=== PATIENT | female | born 1935 | race Caucasian/White ===

== ENCOUNTER → 2016-12-05 | Outpatient (CLI) | payer MEDICARE, BC ==
[2016-03-29 15:00] VITALS: BP 129/58
[~2016-12-05] MED LIST: ACET650S19 PO; ACIT25CA PO; APRE30TA2 PO; AZIT250T6 PO; BISA10SU55 RC; CALC60CR2 TP; CELE200C PO; CLOB15CR2 TP; CLON0.5T3 PO; DILT120T PO; DULO60CA6 PO; FERR-26 PO; FOLI1TAB16 PO; FURO-69 PO; FURO40TA4 PO; GABA-585 PO; HYDR-2672 PO; HYDR-971 PO; HYDR200T5 PO; LEVO75TA PO; LUBI24CA5 PO; MAGN2400 PO; MULT1TAB52 PO; NYST1POW2 TOP; OMEG1CAP6 PO; PANT40TA5 PO; POTA10CA PO; PRED-220 PO; SPIR50TA2 PO; TRAZ100T12 PO; TRAZ50TA15 PO; TRIA115C TP
--- NOTE | 2016-12-05 13:08 | RAD ---
EXAM: Chest 2 views. HISTORY: Positive PPD. COMPARISON: 03/28/2016. FINDINGS: Frontal and lateral views of the chest are obtained. There are no confluent infiltrates. Hyperinflation is consistent with chronic obstructive pulmonary disease. Calcified mediastinal lymph nodes are likely secondary to old granulomatous disease. There is no pneumothorax or pleural effusion. The heart is not enlarged. There are atherosclerotic calcifications of the aorta. There are changes of reversal right total shoulder arthroplasty. Instrumented posterior fusion is noted along the upper lumbar spine, spanning of fracture deformity status post vertebroplasty. IMPRESSION: 1. Chronic obstructive pulmonary disease. No confluent infiltrates.
== END | disposition home or self-care (01) ==
LOC: RAD 11:05
PROVIDERS: ATTEND Preventive Medicine Occupational Medicine
DX: R76.12 Nonspecific reaction to cell mediated immunity measurement of gamma interferon antigen response without active tuberculosis (principal)
CPT/HCPCS: 71020

== ENCOUNTER 2017-08-19 15:23 | Emergency (ER) | payer MEDICARE, BC ==
[~2017-08-19] VITALS: Ht 160 cm; Wt 97.5 kg
[~2017-08-19 15:23] MED LIST changes: -HYDR-2672 PO; +HYDR-2766 PO; -LUBI24CA5 PO; +LUBI24CA7 PO; -POTA10CA PO; +POTASSIUM CHLO10 MEQ PO
[2017-08-19 16:46] LABS: BASO % 1 % (0-3); EOS % 2 % (0-3); HEMATOCRIT 25.5 % (36.0-47.0); HEMOGLOBIN 8.5 g/dL (12.0-15.5); LYMPH % 13 % (24-48); MEAN CORPUSCULAR HEMOGLOBIN 35 pg (25-35); MEAN CORPUSCULAR HGB CONC 33 g/dL (31-37); MEAN CORPUSCULAR VOLUME 105 fL (79-100); MONO % 10 % (0-9); NEUT % 75 % (31-73); PLATELET COUNT 110 x10^3/uL (140-400); RED BLOOD COUNT 2.42 x10^6/uL (3.50-5.40); WHITE BLOOD COUNT 7.7 x10^3/uL (4.0-11.0)
[2017-08-19 16:59] LABS: CALCIUM 9.5 mg/dL (8.5-10.1); GFR 23.9; POTASSIUM 5.4 mmol/L (3.5-5.1)
[2017-08-19 17:06] LABS: ALBUMIN/GLOBULIN RATIO 1.1 (1.0-1.7); TOTAL BILIRUBIN 0.3 mg/dL (0.2-1.0); TOTAL PROTEIN 7.5 g/dL (6.4-8.2)
--- NOTE | 2017-08-19 17:07 | RAD ---
AP PORTABLE CHEST Clinical Indication: soa, h/o "dormant" TB. Comparison: Two-view chest 12/05/2016. Findings: Atherosclerotic and ectatic aortic arch. Cardiac size normal. Lungs are clear. There is no pneumothorax. No pleural effusion is appreciated. There is no acute bone abnormality. Right shoulder arthroplasty. IMPRESSION: No acute cardiopulmonary process.
--- NOTE | 2017-08-19 17:56 | RAD ---
CT scan of the head without contrast 08/19/2017 Clinical History: Altered mental status. Left facial droop. Technique: Unenhanced, contiguous, 5 mm axial sections were obtained through the head. Findings: Comparison study is dated 01/17/2015. There is generalized parenchymal atrophy. Areas of decreased attenuation are seen within the periventricular and subcortical white matter of both cerebral hemispheres consistent with areas of small vessel ischemic disease. No acute parenchymal abnormality is seen. No extra-axial fluid collection is noted. No skull fracture is seen. Impression: . No acute intracranial abnormality is seen. Electronically signed by: Brooks King MD (08/19/2017 5:52 PM) [facility]
[2017-08-19 18:04] VITALS: BP 143/66
[2017-08-19] MEDS ORDERED: PRED20TA PO (18:11)
--- NOTE | 2017-08-19 18:11 | PHYS DOC ---
Past Medical History Past Medical History: Anemia, Arthritis, CHF, COPD, Renal Failure Additional Past Medical Histor: chronic pain in legs,feet,shoulders, kneess Past Surgical History: Other Additional Past Surgical Histo: R knee Alcohol Use: None Drug Use: None Adult General Chief Complaint Chief Complaint: SKIN PROBLEM HPI HPI Patient is a 82 year old female brought to the ED by family members with multiple complaints. The patient first complains of itchy rash on her scalp, upper back/left shoulder, and her low anterior chest. This has been going on for several weeks and is getting worse. It started as itchy scalp without lesions and now has "spread" and there is a rash. She's never had anything just like this before. She has been using a topical steroid intermittently without good result. She is also complaining of some "body aches" that seem like muscular aches and pains across her upper back and in her left shoulder and her left upper arm. This makes her left upper arm feel like she can't move it very well but it's more because of the soreness. Also at some point, they noticed some mild left facial droop. They believe she's had this for 2 or 3 weeks. She' s had no difficulty with speech, no weakness of upper or lower extremities. She is right-handed. She has no history of stroke. Patient denies fever or chills. PCP Dr. Roland Rashid She has also seen a arthritis specialist, does not know if she had a diagnosis. Review of Systems Review of Systems Constitutional: Denies fever or chills [] Eyes: Denies change in visual acuity, redness, or eye pain [] HENT: Denies nasal congestion or sore throat [] Respiratory: Denies cough or shortness of breath [] Cardiovascular: Denies chest pain GI: Denies abdominal pain, nausea, vomiting, bloody stools or diarrhea [] : Denies dysuria or hematuria [] Musculoskeletal: As in history of present illness Integument: As in history of present illness Neurologic: Facial droop as in history of present illness All other systems were reviewed and found to be within normal limits, except as documented in this note. Current Medications Current Medications Current Medications Medications (Trade) Dose Ordered Sig/Lj Start Time Stop Time Status Last Admin Dose Admin Diphenhydramine HCl (Benadryl) 25 mg 1X ONCE 08/19/17 18:30 11/18/17 18:31 DC 08/19/17 18:51 25 MG Allergies Allergies Allergies Coded Allergies Type Severity Reaction Last Updated Verified Cephalosporins Allergy Intermediate 03/24/16 No Penicillins Allergy Intermediate Rash 03/24/16 Yes levofloxacin Allergy Intermediate Rash 01/17/15 Yes Physical Exam Physical Exam Constitutional: Well developed, well nourished, no acute distress, non-toxic appearance. Alert, appropriate, mentating normally, vital signs stable. HENT: Normocephalic, atraumatic, bilateral external ears normal, nose normal. [ ] Eyes: conjunctiva normal, no discharge. [] Neck: Normal range of motion, no stridor. [] Cardiovascular:Heart rate regular rhythm, no murmur [] Lungs & Thorax: Bilateral breath sounds clear to auscultation [] Abdomen: Bowel sounds normal, soft, no tenderness, no masses, no pulsatile masses. [] Skin: Warm, dry. There is a pinkish red rash across the anterior chest that is mostly papular with 2-3 mm papules, there may be a few vesicles. There is no weeping. There are a few scattered lesions on the scalp that may be similar. There is a coalescent area of brighter erythema on the upper left posterior shoulder that is more excoriated. Back: No tenderness, no CVA tenderness. [] Extremities: There is some mild tenderness to palpation of the left shoulder musculature. There is no rash on the left arm. There is chronic appearing edema of both legs with skin darkening that appears chronic. Neurologic: Alert and oriented X 3, appropriate, may be a little forgetful but appears to be at her baseline. There is no speech disturbance. Cranial nerves testing reveals slight flattening of the left nasolabial fold. There is very mild asymmetry of the left side of her face. Eyebrows and forehead elevate evenly with symmetry. Tongue protrudes evenly. Muscles of mastication are symmetric. [employer] 5 over 5 and equal bilaterally. Because of the patient's left shoulder pain it is not possible to do pronator drift testing but her arm strength appears symmetric and 5 over 5 bilaterally. Leg strength 5 over 5 and equal bilaterally for lifting legs off the bed. Current Patient Data Vital Signs Vital Signs Date Time Temp Pulse Resp B/P (MAP) Pulse Ox O2 Delivery O2 Flow Rate FiO2 08/19/17 18:04 82 16 143/66 (91) 93 Room Air 08/19/17 17:34 92.0 08/19/17 15:50 98.2 98.2 Lab Values Laboratory Tests Test 08/19/17 16:35 White Blood Count 7.7 x10^3/uL (4.0-11.0) Red Blood Count 2.42 x10^6/uL (3.50-5.40) L Hemoglobin 8.5 g/dL (12.0-15.5) L Hematocrit 25.5 % (36.0-47.0) L Mean Corpuscular Volume 105 fL (79-100) H Mean Corpuscular Hemoglobin 35 pg (25-35) Mean Corpuscular Hemoglobin Concent 33 g/dL (31-37) Red Cell Distribution Width 14.0 % (11.5-14.5) Platelet Count 110 x10^3/uL (140-400) L Neutrophils (%) (Auto) 75 % (31-73) H Lymphocytes (%) (Auto) 13 % (24-48) L Monocytes (%) (Auto) 10 % (0-9) H Eosinophils (%) (Auto) 2 % (0-3) Basophils (%) (Auto) 1 % (0-3) Neutrophils # (Auto) 5.8 x10^3uL (1.8-7.7) Lymphocytes # (Auto) 1.0 x10^3/uL (1.0-4.8) Monocytes # (Auto) 0.7 x10^3/uL (0.0-1.1) Eosinophils # (Auto) 0.2 x10^3/uL (0.0-0.7) Basophils # (Auto) 0.0 x10^3/uL (0.0-0.2) Erythrocyte Sedimentation Rate 50 (0-25) H Sodium Level 137 mmol/L (136-145) Potassium Level 5.4 mmol/L (3.5-5.1) H Chloride Level 101 mmol/L (98-107) Carbon Dioxide Level 30 mmol/L (21-32) Anion Gap 6 (6-14) Blood Urea Nitrogen 34 mg/dL (7-20) H Creatinine 2.0 mg/dL (0.6-1.0) H Estimated GFR (Cockcroft-Gault) 23.9 BUN/Creatinine Ratio 17 (6-20) Glucose Level 114 mg/dL (70-99) H Calcium Level 9.5 mg/dL (8.5-10.1) Total Bilirubin 0.3 mg/dL (0.2-1.0) Aspartate Amino Transferase (AST) 22 U/L (15-37) Alanine Aminotransferase (ALT) 21 U/L (14-59) Alkaline Phosphatase 60 U/L (46-116) FT-Ork-M-Type Natriuretic Peptide 196 pg/mL (0-449) Total Protein 7.5 g/dL (6.4-8.2) Albumin 4.0 g/dL (3.4-5.0) Albumin/Globulin Ratio 1.1 (1.0-1.7) Laboratory Tests 08/19/17 16:35 Laboratory Tests 08/19/17 16:35 EKG EKG [] Radiology/Procedures Radiology/Procedures CT scan of the head read by the radiologist. No acute findings. Small vessel disease. [] Course & Med Decision Making Course & Med Decision Making Pertinent Labs and Imaging studies reviewed. (See chart for details) 82-year-old female brought to the ED by family members with multiple issues tonight. #1, she has an itchy rash that is nonspecific in appearance. Because of the location and distribution, I doubt contact dermatitis. #2, she has achiness of the left shoulder and left upper back especially but describes some diffuse muscle aches. For this I ordered a sedimentation rate which is elevated at 50, although the patient is a 82 so it could be normal for age. #3, she has a mild left facial droop that is not acute and may be 2-3 weeks old or more. She does not have other neurologic complaints or findings. Labs were obtained and reviewed by me. CBC reveals anemia which is chronic. Chemistries reveal chronic renal insufficiency which appears to be stable.\\CT scan of the head reveals nothing acute but positive for small vessel disease. I discussed the findings with the patient and her family. I believe the patient is stable for discharge. She may have had a very small CVA in the past 2-3 weeks causing her left facial droop which is very mild. We will start her on low -dose aspirin. For the rash and the complaints of muscle aches we will start the patient on a trial of prednisone. I would like to consider polymyalgia rheumatica and discussed this with the patient and her family and ask her to follow up with her primary care physician in the next week or so. Patient and her family were agreeable to this plan. The patient is stable for discharge. She does live in an assisted living situation and discharge instructions were sent for them as well. [] Jg Disclaimer Dragon Disclaimer This electronic medical record was generated, in whole or in part, using a voice recognition dictation system. Departure Departure Impression: Primary Impression: Elevated sed rate Additional Impressions: Myalgia Pruritic rash Disposition: 01 HOME, SELF-CARE Condition: STABLE Referrals: ROLAND RASHID Jr, MD (PCP) Additional Instructions: As we discussed, we will treat you with prednisone, which is a steroid. Fill the prescription and take twice a day as instructed. Make an appointment with your primary care doctor for recheck in 1-2 weeks and tell him how you are doing with the prednisone. We will give it for 2 weeks, a higher dose for the first week and then a lower dose the second week. Your primary care doctor can decide what he wants to do with your dosing if he does want to keep you on it. I don't know what is causing your itchy rash, but we often uses prednisone to treat itchy rashes so we will try it. I did a blood test today for a condition called polymyalgia rheumatica, abbreviated PMR. The blood test indicated that you might have that. It will be helpful to know whether or not prednisone helps your shoulder pain. If you feel a lot better while you're taking prednisone, you might have PMR. Discuss this with your primary care doctor. We noted a slight amount of weakness on the left side of your face. You may have had a slight stroke causing this. At this time, there is no way to confirm this with certainty and no specific treatment. Also, discuss this with your primary care doctor. We discussed that you are not on any type of blood thinning medication or aspirin. If you are not already currently taking aspirin , I would like you to start taking aspirin 81 mg (low dose) one per day. You may take it at morning or night, it doesn't matter. Summary: Begin taking prednisone 20 mg every 12 hours as directed tonight, after 1 week decrease to 20 mg once a day, discuss with your primary care doctor whether this helps you or not. Begin taking aspirin 81 mg daily if you are not already taking aspirin. Make a follow-up appointment with your primary care doctor in about one week. Scripts Prednisone (PREDNISONE) 20 Mg Tablet 20 MG PO BID for rash, possible PMR for 14 Days, #28 TAB 1 pill twice a day for 7 days Then 1 pill once a day for 7 days Prov: ROHITH PERRY MD 08/19/17 Problem Qualifiers ROHITH PERRY MD Aug 19, 2017 18:11
[2017-08-19] MEDS ORDERED: diphenhydrAMINE HCL 25 MG CAPSULE PO ONE (18:30)
== END 2017-08-19 19:04 | disposition home or self-care (01) ==
LOC: ER 15:23
DX: L29.9 Pruritus, unspecified (principal); R70.0 Elevated erythrocyte sedimentation rate; M79.1 Myalgia; R29.810 Facial weakness; M19.90 Unspecified osteoarthritis, unspecified site; I50.9 Heart failure, unspecified; J44.9 Chronic obstructive pulmonary disease, unspecified; N18.9 Chronic kidney disease, unspecified; G89.29 Other chronic pain; Z88.0 Allergy status to penicillin; Z88.1 Allergy status to other antibiotic agents
CPT/HCPCS: 36415; 70450; 71010; 80053; 83880; 85025; 85651; 99285; Q0163

== ENCOUNTER 2017-09-06 04:25 | Emergency (ER) | payer MEDICARE, BC ==
[~2017-09-06 04:25] MED LIST changes: +PRED20TA PO
--- NOTE | 2017-09-06 04:31 | PHYS DOC ---
Past Medical History Past Medical History: Anemia, Arthritis, CHF, COPD, Renal Failure Additional Past Medical Histor: chronic pain in legs,feet,shoulders, kneess Past Surgical History: Other Additional Past Surgical Histo: R knee Alcohol Use: None Drug Use: None Adult General Chief Complaint Chief Complaint: HIP PAIN HPI HPI Patient is a 82 year old female who presents with left hip pain and headache after fall. She states she got up to weigh yourself and felt she was going to fall and the next thing she knew she was on the floor. She states she hit her head on the wall behind her she's complaining of in the posterior aspect of her head. She denies any neck pain, weakness, fevers chills, chest pain or nausea. She is complaining about left hip pain. She states she remembers the entire event and did not lose consciousness. Review of Systems Review of Systems Constitutional: Denies fever or chills [] Eyes: Denies change in visual acuity, redness, or eye pain [] HENT: Denies nasal congestion or sore throat [] Respiratory: Denies cough or shortness of breath [] Cardiovascular: No additional information not addressed in HPI [] GI: Denies abdominal pain, nausea, vomiting, bloody stools or diarrhea [] : Denies dysuria or hematuria [] Musculoskeletal: Denies back pain, positive for left hip pain Integument: Denies rash or skin lesions [] Neurologic: Positive for headache, Denies focal weakness or sensory changes [] Endocrine: Denies polyuria or polydipsia [] All other systems were reviewed and found to be within normal limits, except as documented in this note. Allergies Allergies Allergies Coded Allergies Type Severity Reaction Last Updated Verified Cephalosporins Allergy Intermediate 03/24/16 No Penicillins Allergy Intermediate Rash 03/24/16 Yes levofloxacin Allergy Intermediate Rash 01/17/15 Yes Physical Exam Physical Exam Constitutional: Well developed, well nourished, no acute distress, non-toxic appearance. [] HENT: Normocephalic, tender to palpation the posterior aspect the scalp, no obvious deformity noted, bilateral external ears normal, oropharynx moist, no oral exudates, nose normal. [] Eyes: PERRLA, EOMI, conjunctiva normal, no discharge. [] Neck: Normal range of motion, no tenderness, supple, no stridor. [] Cardiovascular:Heart rate regular rhythm, no murmur [] Lungs & Thorax: Bilateral breath sounds clear to auscultation [] Abdomen: Bowel sounds normal, soft, no tenderness, no masses, no pulsatile masses. [] Skin: Warm, dry, no erythema, no rash. [] Back: No tenderness, no CVA tenderness. [] Extremities: Mild tender palpation of the left hip without any obvious deformity or rotation noted, no cyanosis, no clubbing, ROM intact, no edema. [] Neurologic: Alert and oriented X 3, normal motor function, normal sensory function, no focal deficits noted. [] Psychologic: Affect normal, judgement normal, mood normal. [] Current Patient Data Vital Signs Vital Signs Date Time Temp Pulse Resp B/P (MAP) Pulse Ox O2 Delivery O2 Flow Rate FiO2 09/06/17 05:03 78 20 143/64 (90) 96 Nasal Cannula 2.0 09/06/17 04:36 98.5 98.5 EKG EKG [] Radiology/Procedures Radiology/Procedures [facility] [address] [facility] [place] [address] IMAGING REPORT Signed PATIENT: MELI VERMA ACCOUNT: [id number] : 1935 LOCATION: ER AGE: 82 SEX: F EXAM STATUS: REG ER ORD. PHYSICIAN: KAREN FOURNIER MD REASON: headache after fall PROCEDURE: CT HEAD AND CERVICAL SPINE WO INDICATION: head and neck pain after fall COMPARISON: CT head from August 19, [address] cervical from October 28, 2013 TECHNIQUE: Axial CT images obtained through the head and cervical spine without intravenous contrast. Coronal and sagittal reformats processed of cervical spine. One or more of the following individualized dose reduction techniques were utilized for this examination: 1. Automated exposure control; 2. Adjustment of the mA and/or kV according to patient size; 3. Use of iterative reconstruction technique. FINDINGS: Head: No intracranial hemorrhage. No midline shift. Basal cisterns patents. Ventricles and sulci are within normal limits. No acute osseous abnormality. Orbits and paranasal sinuses unremarkable. Moderate foci of low-attenuation throughout white matter. Cervical: No definite acute fracture or dislocation. Degenerative changes throughout the cervical spine. Grade 1 anterolisthesis of C3 on 4 and C4 on 5. Mild retrolisthesis of C5 on 6. Grade 1 anterolisthesis of C7 on T1. Mild scoliotic curvature cervical spine. There are some cystic changes at the lung apices which can be seen with emphysema. IMPRESSION: No acute intracranial hemorrhage. Low-attenuation throughout white matter. Nonspecific but can be seen with chronic small vessel ischemic disease. No definite acute fracture or dislocation of the cervical spine. Degenerative changes throughout the cervical spine with osteophyte formation at the vertebral body endplates as well as uncovertebral and facet hypertrophy with multilevel central canal and neural foraminal stenosis. Electronically signed by: Salina Delgadillo MD (09/06/2017 5:24 AM) [facility] DICTATED and SIGNED BY: SALINA DELGADILLO MD DATE: 09/06/17 0506 CC: KAREN FOURNIER MD; BONITA RASHID Jr, MD ~ 5 views of the left hip and pelvis did not show any fractures, malalignments, soft tissue abnormalities, as interpreted by me. Impressions: Closed head injury Left hip pain Course & Med Decision Making Course & Med Decision Making Pertinent Labs and Imaging studies reviewed. (See chart for details) His cervical spine and head did not show any abnormalities. X-rays of the left hip and pelvis also nonacute. Patient was able to ambulate with minimal difficulties with her use of a walker. She's being discharged back to her facility. Return precautions given. Dragon Disclaimer Dragon Disclaimer This electronic medical record was generated, in whole or in part, using a voice recognition dictation system. Departure Departure Impression: Primary Impression: Left hip pain Disposition: 01 HOME, SELF-CARE Condition: STABLE Referrals: BONITA RASHID Jr, MD (PCP) Patient Instructions: Fall Prevention and Home Safety, [id number] Additional Instructions: The CAT scan of your head and neck in addition to the x-rays of your pelvis and hip did not show anything broken. Your being discharged back to her facility. You can take Advil or Tylenol for pain. You might be sore for the next couple of days however the pain should get better over the next several days. Return ER if you have severe pain, weakness, or other concerns. KAREN FOURNIER MD Sep 06, 2017 04:31
--- NOTE | 2017-09-06 05:27 | RAD ---
INDICATION: head and neck pain after fall COMPARISON: CT head from August 19, [address] cervical from October 28, 2013 TECHNIQUE: Axial CT images obtained through the head and cervical spine without intravenous contrast. Coronal and sagittal reformats processed of cervical spine. One or more of the following individualized dose reduction techniques were utilized for this examination: 1. Automated exposure control; 2. Adjustment of the mA and/or kV according to patient size; 3. Use of iterative reconstruction technique. FINDINGS: Head: No intracranial hemorrhage. No midline shift. Basal cisterns patents. Ventricles and sulci are within normal limits. No acute osseous abnormality. Orbits and paranasal sinuses unremarkable. Moderate foci of low-attenuation throughout white matter. Cervical: No definite acute fracture or dislocation. Degenerative changes throughout the cervical spine. Grade 1 anterolisthesis of C3 on 4 and C4 on 5. Mild retrolisthesis of C5 on 6. Grade 1 anterolisthesis of C7 on T1. Mild scoliotic curvature cervical spine. There are some cystic changes at the lung apices which can be seen with emphysema. IMPRESSION: No acute intracranial hemorrhage. Low-attenuation throughout white matter. Nonspecific but can be seen with chronic small vessel ischemic disease. No definite acute fracture or dislocation of the cervical spine. Degenerative changes throughout the cervical spine with osteophyte formation at the vertebral body endplates as well as uncovertebral and facet hypertrophy with multilevel central canal and neural foraminal stenosis. Electronically signed by: Esau Pollard MD (09/06/2017 5:24 AM) [facility]
[2017-09-06 06:10] VITALS: BP 155/66
--- NOTE | 2017-09-06 07:11 | RAD ---
Pelvis with left hip, 3 views, 09/06/2017: History: Fall, hip pain The bony structures are demineralized. No acute fracture or dislocation is identified. There is mild joint space narrowing and spurring at the left hip joint. Postsurgical changes are noted in the lower lumbar spine and in the lower pelvis. IMPRESSION: No acute bony abnormality is detected.
== END 2017-09-06 07:36 | disposition home or self-care (01) ==
LOC: ER 04:25
DX: S09.90XA Unspecified injury of head, initial encounter (principal); M25.552 Pain in left hip; I50.9 Heart failure, unspecified; N19 Unspecified kidney failure; J44.9 Chronic obstructive pulmonary disease, unspecified; M19.90 Unspecified osteoarthritis, unspecified site; G89.29 Other chronic pain; Z88.0 Allergy status to penicillin; Z88.1 Allergy status to other antibiotic agents; W18.39XA Other fall on same level, initial encounter; Y93.89 Activity, other specified; Y99.8 Other external cause status; Y92.89 Other specified places as the place of occurrence of the external cause
CPT/HCPCS: 70450; 72125; 73502; 99284-25

== ENCOUNTER 2017-11-13 16:32 | Inpatient (IN) | payer MEDICARE, BC ==
[2017-11-13 18:39] LABS: BILIRUBIN,URINE NEGATIVE (NEG); CLARITY,URINE CLEAR; COLOR,URINE YELLOW; GLUCOSE,URINE NEGATIVE (NEG); NITRITE,URINE NEGATIVE (NEG); PH,URINE 5.5; PROTEIN,URINE 30 mg/dL (NEG-TRACE); UROBILINOGEN,URINE 0.2 mg/dL (0.2 mg/dL)
[2017-11-13] MEDS: IPRATRPIUM/ALBUTEROL 0.5/2.5MG 3 ML NEBU. NEB ×2 (18:50→20:10)
[2017-11-13 18:54] LABS: BACTERIA,URINE 0 /HPF (0-FEW); HYALINE CASTS, URINE MANY /HPF; RBC,URINE 0 /HPF (0-2); WBC,URINE RARE /HPF (0-4)
[2017-11-13 18:56] LABS: BASO % 0 % (0-3); EOS % 0 % (0-3); LYMPH # 1.1 x10^3/uL (1.0-4.8); LYMPH % 9 % (24-48); MEAN CORPUSCULAR HEMOGLOBIN 35 pg (25-35); MEAN CORPUSCULAR HGB CONC 32 g/dL (31-37); MEAN CORPUSCULAR VOLUME 108 fL (79-100); MONO # 2.7 x10^3/uL (0.0-1.1); MONO % 23 % (0-9); NEUT # 7.7 x10^3uL (1.8-7.7); NEUT % 67 % (31-73); PLATELET COUNT 154 x10^3/uL (140-400); RED BLOOD COUNT 1.88 x10^6/uL (3.50-5.40); RED CELL DISTRIBUTION WIDTH 16.1 % (11.5-14.5); WHITE BLOOD COUNT 11.5 x10^3/uL (4.0-11.0)
[2017-11-13 18:59] LABS: INFLUENZA A PATIENT NEGATIVE (NEGATIVE); INFLUENZA B PATIENT NEGATIVE (NEGATIVE); OBC FLU VALID
[2017-11-13 19:03] LABS: HEMATOCRIT 20.3 % (36.0-47.0); HEMOGLOBIN 6.6 g/dL (12.0-15.5)
[2017-11-13 19:04] LABS: ADD MAN DIFF? YES
[2017-11-13 19:05] LABS: ANION GAP 5 (6-14); BLOOD UREA NITROGEN 37 mg/dL (7-20); BUN/CREATININE RATIO 22 (6-20); CALCIUM 9.3 mg/dL (8.5-10.1); CARBON DIOXIDE 35 mmol/L (21-32); CHLORIDE 97 mmol/L (98-107); CREATININE 1.7 mg/dL (0.6-1.0); GFR 28.8; GLUCOSE 144 mg/dL (70-99); POTASSIUM 5.5 mmol/L (3.5-5.1); SODIUM 137 mmol/L (136-145)
[2017-11-13 19:11] LABS: ALBUMIN/GLOBULIN RATIO 0.9 (1.0-1.7); ALK PHOS 80 U/L (46-116); ALT (SGPT) 32 U/L (14-59); AST (SGOT) 28 U/L (15-37); TOTAL BILIRUBIN 0.4 mg/dL (0.2-1.0); TOTAL PROTEIN 6.3 g/dL (6.4-8.2)
[2017-11-13 19:14] LABS: TROPONINI < 0.017 ng/mL (0.000-0.055)
[2017-11-13 19:18] LABS: NT-PRO BNP 597 pg/mL (0-449)
[2017-11-13 19:18] LABS: CKMB MASS 1.6 ng/mL (0.0-3.6)
[2017-11-13 19:25] LABS: CREATINE KINASE 64 U/L (26-192)
[2017-11-13 19:35] LABS: % BANDS 8 % (0-9); % EOS 1 % (0-5); % LYMPHS 14 % (24-48); % MONOS 15 % (0-10); % SEGS 62 % (35-66); MICROCYTOSIS SLIGHT; PLT ESTIMATE ADEQUATE (ADEQUATE); POIKILOCYTOSIS SLIGHT
[2017-11-13 19:37] LABS: HYPERSEGS PRESENT; STOMATOCYTES FEW
[2017-11-13] MEDS ORDERED: ACETAMINOPHEN 325 MG TABLET. PO ×2 (20:00→21:00)
[2017-11-13] MEDS ORDERED: ONDANSETRON PF 4 MG/2 ML VIAL. IV ×2 (20:00→21:00)
[2017-11-13] MEDS: IV NORMAL SALINE 1000ML BAG 1,000 ML IV (20:38)
[2017-11-13] MEDS ORDERED: hydrALAZINE 20 MG/ML VIAL. IVP (21:00)
[2017-11-13] MEDS ORDERED: DOCUSATE SODIUM 100 MG CAPSULE. PO (21:00)
[2017-11-13] MEDS: LACTOBACILLUS RHAMNOSUS GG 1 CAPSULE. PO (21:52)
[2017-11-13] MEDS: FUROSEMIDE 20 MG/2 ML VIAL. IVP (21:53)
[2017-11-13] MEDS ORDERED: MEROPENEM 1 GM in IV NORMAL SALINE 100ML 100 ML IV (22:00)
[2017-11-13] MEDS: MEROPENEM IV Push 1 GM VIAL. IVP (22:08)
[2017-11-13 23:25] LABS: IMMEDIATE SPIN CROSSMATCH 1 2
[2017-11-14 00:04] LABS: FECAL OB PT POSITIVE (NEG); NEG OBC FOB NEG; POS OBC FOB POS
[2017-11-14 02:34] LABS: % SAT IRON 15 % (15-34); IRON,SERUM 39 ug/dL (50-170)
[2017-11-14 02:50] LABS: FERRITIN 945 ng/mL (8-252)
[2017-11-14 04:22] LABS: ADD MAN DIFF? NO
[2017-11-14 04:30] LABS: BASO % 0 % (0-3); EOS # 0.1 x10^3/uL (0.0-0.7); EOS % 1 % (0-3); HEMATOCRIT 21.1 % (36.0-47.0); LYMPH % 10 % (24-48); MEAN CORPUSCULAR HEMOGLOBIN 34 pg (25-35); MEAN CORPUSCULAR HGB CONC 33 g/dL (31-37); MEAN CORPUSCULAR VOLUME 103 fL (79-100); MONO # 2.4 x10^3/uL (0.0-1.1); MONO % 24 % (0-9); NEUT # 6.4 x10^3uL (1.8-7.7); NEUT % 65 % (31-73); PLATELET COUNT 139 x10^3/uL (140-400); RED BLOOD COUNT 2.05 x10^6/uL (3.50-5.40); RED CELL DISTRIBUTION WIDTH 17.3 % (11.5-14.5); WHITE BLOOD COUNT 9.9 x10^3/uL (4.0-11.0)
[2017-11-14 04:46] LABS: ANION GAP 2 (6-14); BLOOD UREA NITROGEN 36 mg/dL (7-20); CALCIUM 8.7 mg/dL (8.5-10.1); CARBON DIOXIDE 37 mmol/L (21-32); CHLORIDE 97 mmol/L (98-107); CREATININE 1.5 mg/dL (0.6-1.0); GFR 33.2; GLUCOSE 108 mg/dL (70-99); POTASSIUM 4.7 mmol/L (3.5-5.1); SODIUM 136 mmol/L (136-145)
[2017-11-14] MEDS: IPRATRPIUM/ALBUTEROL 0.5/2.5MG 3 ML NEBU. NEB ×6 (08:00→20:06)
[2017-11-14 08:19] LABS: VITAMIN-B12 1018 pg/mL (247-911)
[2017-11-14 09:00] LABS: FOLATE > 20.00 ng/ml (3.2-20.0)
[2017-11-14] MEDS: CLOBETASOL EMOLLIENT 0.05% TOPICAL CREAM 15GM TUBE. TP ×2 (09:00→13:57)
[2017-11-14] MEDS: LACTOBACILLUS RHAMNOSUS GG 1 CAPSULE. PO ×2 (10:07→20:34)
[2017-11-14] MEDS: MEROPENEM IV Push 1 GM VIAL. IVP ×2 (10:07→20:34)
[2017-11-14] MEDS: PANTOPRAZOLE 40 MG TABLET.DR. PO (10:09)
[2017-11-14] MEDS: traMADol 50 MG TABLET PO (10:43)
[2017-11-14] MEDS: FLUCONAZOLE 100 MG TABLET. PO (10:44)
[2017-11-14] MEDS ORDERED: BISACODYL 10 MG SUPP.RECT. RC (13:00)
[2017-11-14] MEDS ORDERED: DOCUSATE SODIUM 100 MG CAPSULE. PO (13:00)
[2017-11-14] MEDS ORDERED: MAGNESIUM HYDROXIDE 2,400 MG/30 ML ORAL.SUSP. PO (13:45)
[2017-11-14] MEDS: FERROUS SULFATE 325 MG TABLET. PO ×2 (13:57→17:12)
[2017-11-14] MEDS: ASCORBIC ACID 500 MG TABLET PO ×2 (13:57→20:34)
[2017-11-14] MEDS: ASPIRIN ENTERIC COATED 81 MG TABLET.DR. PO (13:57)
[2017-11-14] MEDS: IV NORMAL SALINE 1000ML BAG 1,000 ML IV (13:58)
[2017-11-14] MEDS: fentaNYL 50MCG/HR PATCH 1 PATCH PATCH.TD72 TD (14:02)
[2017-11-14] MEDS: CALCIUM CARB/VIT D3 500/200 TABLET. PO ×2 (17:12→20:34)
[2017-11-14] MEDS: LUBIPROSTONE 8 MCG CAPSULE PO (20:34)
[2017-11-14] MEDS: GABAPENTIN 100 MG CAPSULE. PO (20:35)
[2017-11-14] MEDS: HYDROcodone/APAP 10/325 1 TAB TABLET PO (20:42)
[2017-11-14] MEDS: clonazePAM 0.5 MG TABLET PO (20:43)
[2017-11-14] MEDS: traZODone 50 MG TABLET. PO (20:46)
[2017-11-15 06:19] LABS: ADD MAN DIFF? NO
[2017-11-15 06:46] LABS: BASO % 0 % (0-3); EOS # 0.1 x10^3/uL (0.0-0.7); EOS % 1 % (0-3); HEMATOCRIT 22.5 % (36.0-47.0); HEMOGLOBIN 7.5 g/dL (12.0-15.5); LYMPH % 11 % (24-48); MEAN CORPUSCULAR HEMOGLOBIN 34 pg (25-35); MEAN CORPUSCULAR HGB CONC 33 g/dL (31-37); MEAN CORPUSCULAR VOLUME 104 fL (79-100); MONO # 2.4 x10^3/uL (0.0-1.1); MONO % 26 % (0-9); NEUT # 5.6 x10^3uL (1.8-7.7); NEUT % 62 % (31-73); PLATELET COUNT 160 x10^3/uL (140-400); RED BLOOD COUNT 2.17 x10^6/uL (3.50-5.40); RED CELL DISTRIBUTION WIDTH 17.2 % (11.5-14.5); WHITE BLOOD COUNT 9.1 x10^3/uL (4.0-11.0)
[2017-11-15 06:54] LABS: ANION GAP 5 (6-14); BLOOD UREA NITROGEN 25 mg/dL (7-20); CALCIUM 8.4 mg/dL (8.5-10.1); CARBON DIOXIDE 34 mmol/L (21-32); CHLORIDE 97 mmol/L (98-107); CREATININE 1.7 mg/dL (0.6-1.0); GFR 28.8; GLUCOSE 98 mg/dL (70-99); POTASSIUM 4.6 mmol/L (3.5-5.1); SODIUM 136 mmol/L (136-145)
[2017-11-15] MEDS ORDERED: PANTOPRAZOLE 40 MG TABLET.DR. PO (07:00)
[2017-11-15] MEDS: ASPIRIN ENTERIC COATED 81 MG TABLET.DR. PO (08:28)
[2017-11-15] MEDS: LUBIPROSTONE 8 MCG CAPSULE PO ×2 (08:28→20:30)
[2017-11-15] MEDS: LACTOBACILLUS RHAMNOSUS GG 1 CAPSULE. PO ×2 (08:28→20:30)
[2017-11-15] MEDS: GABAPENTIN 100 MG CAPSULE. PO ×2 (08:28→20:30)
[2017-11-15] MEDS: FERROUS SULFATE 325 MG TABLET. PO ×3 (08:29→18:03)
[2017-11-15] MEDS: ASCORBIC ACID 500 MG TABLET PO ×3 (08:29→20:31)
[2017-11-15] MEDS: CALCIUM CARB/VIT D3 500/200 TABLET. PO ×4 (08:29→20:31)
[2017-11-15] MEDS: PANTOPRAZOLE 40 MG TABLET.DR. PO (08:29)
[2017-11-15] MEDS: FLUCONAZOLE 100 MG TABLET. PO (08:29)
[2017-11-15] MEDS: MEROPENEM IV Push 1 GM VIAL. IVP ×2 (08:30→20:30)
[2017-11-15] MEDS: SPIRONOLACTONE 25 MG TABLET PO (08:32)
[2017-11-15] MEDS: DULoxetine HCL 30 MG CAPSULE.DR PO (08:32)
[2017-11-15] MEDS: LEVOTHYROXINE 75 MCG TABLET PO (08:33)
[2017-11-15] MEDS: CLOBETASOL EMOLLIENT 0.05% TOPICAL CREAM 15GM TUBE. TP (08:33)
[2017-11-15] MEDS: HYDROcodone/APAP 10/325 1 TAB TABLET PO ×2 (08:35→20:30)
[2017-11-15] MEDS: IPRATRPIUM/ALBUTEROL 0.5/2.5MG 3 ML NEBU. NEB ×4 (08:50→20:49)
[2017-11-15] MEDS: IV NORMAL SALINE 1000ML BAG 1,000 ML IV (13:52)
[2017-11-15] MEDS: diphenhydrAMINE HCL 25 MG CAPSULE PO (20:30)
[2017-11-15] MEDS: traZODone 50 MG TABLET. PO (20:30)
[2017-11-15] MEDS: clonazePAM 0.5 MG TABLET PO (20:31)
[2017-11-16] MEDS: IV NORMAL SALINE 1000ML BAG 1,000 ML IV (01:39)
[2017-11-16] MEDS: HYDROcodone/APAP 10/325 1 TAB TABLET PO ×3 (01:40→20:40)
[2017-11-16] MEDS: CALCIUM CARB/VIT D3 500/200 TABLET. PO ×4 (07:30→20:40)
[2017-11-16] MEDS: PANTOPRAZOLE 40 MG TABLET.DR. PO (07:30)
[2017-11-16] MEDS: IPRATRPIUM/ALBUTEROL 0.5/2.5MG 3 ML NEBU. NEB ×4 (08:00→20:21)
[2017-11-16] MEDS: FERROUS SULFATE 325 MG TABLET. PO ×3 (08:00→17:00)
[2017-11-16] MEDS: ALBUTEROL SULFATE 2.5 MG/3 ML NEBU. NEB (08:25)
[2017-11-16] MEDS: MEROPENEM IV Push 1 GM VIAL. IVP ×2 (08:56→20:39)
[2017-11-16] MEDS: ASPIRIN ENTERIC COATED 81 MG TABLET.DR. PO (09:00)
[2017-11-16] MEDS: ASCORBIC ACID 500 MG TABLET PO ×3 (09:00→20:40)
[2017-11-16] MEDS: LUBIPROSTONE 8 MCG CAPSULE PO ×2 (09:00→20:39)
[2017-11-16] MEDS: DULoxetine HCL 30 MG CAPSULE.DR PO (09:00)
[2017-11-16] MEDS: GABAPENTIN 100 MG CAPSULE. PO ×2 (09:00→20:40)
[2017-11-16] MEDS: CLOBETASOL EMOLLIENT 0.05% TOPICAL CREAM 15GM TUBE. TP (09:00)
[2017-11-16] MEDS: FLUCONAZOLE 100 MG TABLET. PO (09:00)
[2017-11-16] MEDS: LEVOTHYROXINE 75 MCG TABLET PO (09:00)
[2017-11-16] MEDS: LACTOBACILLUS RHAMNOSUS GG 1 CAPSULE. PO ×2 (09:00→20:39)
[2017-11-16 09:58] LABS: ADD MAN DIFF? NO
[2017-11-16 10:02] LABS: BASO # 0.1 x10^3/uL (0.0-0.2); BASO % 1 % (0-3); EOS # 0.1 x10^3/uL (0.0-0.7); EOS % 1 % (0-3); HEMOGLOBIN 7.4 g/dL (12.0-15.5); LYMPH # 1.3 x10^3/uL (1.0-4.8); LYMPH % 14 % (24-48); MEAN CORPUSCULAR HEMOGLOBIN 34 pg (25-35); MEAN CORPUSCULAR HGB CONC 34 g/dL (31-37); MEAN CORPUSCULAR VOLUME 101 fL (79-100); MONO # 2.8 x10^3/uL (0.0-1.1); MONO % 30 % (0-9); NEUT % 54 % (31-73); PLATELET COUNT 148 x10^3/uL (140-400); RED BLOOD COUNT 2.18 x10^6/uL (3.50-5.40); RED CELL DISTRIBUTION WIDTH 16.2 % (11.5-14.5); WHITE BLOOD COUNT 9.2 x10^3/uL (4.0-11.0)
[2017-11-16 10:09] LABS: ANION GAP 3 (6-14); BLOOD UREA NITROGEN 23 mg/dL (7-20); CALCIUM 8.8 mg/dL (8.5-10.1); CARBON DIOXIDE 35 mmol/L (21-32); CHLORIDE 101 mmol/L (98-107); CREATININE 1.4 mg/dL (0.6-1.0); GLUCOSE 105 mg/dL (70-99); POTASSIUM 4.8 mmol/L (3.5-5.1); SODIUM 139 mmol/L (136-145)
[2017-11-16 10:14] LABS: % SAT IRON 11 % (15-34); IRON,SERUM 25 ug/dL (50-170)
[2017-11-16] MEDS: AMINO AC 3%/ELECTROLYTE/GLYCER 1,000 ML IV (13:11)
[2017-11-16] MEDS: PANTOPRAZOLE IV PUSH 40 MG VIAL. IVP (13:11)
[2017-11-16] MEDS: IRON SUCROSE COMPLEX 500 MG in IV NORMAL SALINE 250ML 250 ML IV (15:09)
[2017-11-16] MEDS: traZODone 50 MG TABLET. PO (20:40)
[2017-11-16] MEDS: clonazePAM 0.5 MG TABLET PO (20:40)
[2017-11-17] MEDS: AMINO AC 3%/ELECTROLYTE/GLYCER 1,000 ML IV ×3 (05:05→15:15)
[2017-11-17 05:53] LABS: ADD MAN DIFF? NO
[2017-11-17 06:09] LABS: BASO % 1 % (0-3); EOS # 0.1 x10^3/uL (0.0-0.7); EOS % 1 % (0-3); HEMATOCRIT 21.9 % (36.0-47.0); HEMOGLOBIN 7.3 g/dL (12.0-15.5); LYMPH # 1.1 x10^3/uL (1.0-4.8); LYMPH % 13 % (24-48); MEAN CORPUSCULAR HEMOGLOBIN 34 pg (25-35); MEAN CORPUSCULAR HGB CONC 34 g/dL (31-37); MEAN CORPUSCULAR VOLUME 101 fL (79-100); MONO # 2.6 x10^3/uL (0.0-1.1); MONO % 30 % (0-9); NEUT # 4.9 x10^3uL (1.8-7.7); NEUT % 56 % (31-73); PLATELET COUNT 148 x10^3/uL (140-400); RED BLOOD COUNT 2.16 x10^6/uL (3.50-5.40); RED CELL DISTRIBUTION WIDTH 16.3 % (11.5-14.5); WHITE BLOOD COUNT 8.7 x10^3/uL (4.0-11.0)
[2017-11-17 06:29] LABS: ANION GAP 5 (6-14); BLOOD UREA NITROGEN 21 mg/dL (7-20); CALCIUM 8.9 mg/dL (8.5-10.1); CARBON DIOXIDE 33 mmol/L (21-32); CHLORIDE 99 mmol/L (98-107); CREATININE 1.2 mg/dL (0.6-1.0); GLUCOSE 104 mg/dL (70-99); SODIUM 137 mmol/L (136-145)
[2017-11-17] MEDS: CALCIUM CARB/VIT D3 500/200 TABLET. PO ×3 (07:30→16:39)
[2017-11-17] MEDS: FERROUS SULFATE 325 MG TABLET. PO ×3 (08:00→16:39)
[2017-11-17] MEDS: IPRATRPIUM/ALBUTEROL 0.5/2.5MG 3 ML NEBU. NEB ×3 (08:25→16:37)
[2017-11-17] MEDS: PANTOPRAZOLE IV PUSH 40 MG VIAL. IVP (08:57)
[2017-11-17] MEDS: MEROPENEM IV Push 1 GM VIAL. IVP (08:57)
[2017-11-17] MEDS: ASPIRIN ENTERIC COATED 81 MG TABLET.DR. PO (09:00)
[2017-11-17] MEDS: GABAPENTIN 100 MG CAPSULE. PO (09:00)
[2017-11-17] MEDS: HYDROcodone/APAP 10/325 1 TAB TABLET PO (09:00)
[2017-11-17] MEDS: LEVOTHYROXINE 75 MCG TABLET PO (09:00)
[2017-11-17] MEDS: ASCORBIC ACID 500 MG TABLET PO ×2 (09:00→15:11)
[2017-11-17] MEDS: DULoxetine HCL 30 MG CAPSULE.DR PO (09:00)
[2017-11-17] MEDS: FLUCONAZOLE 100 MG TABLET. PO (09:00)
[2017-11-17] MEDS: CLOBETASOL EMOLLIENT 0.05% TOPICAL CREAM 15GM TUBE. TP (09:00)
[2017-11-17] MEDS: LACTOBACILLUS RHAMNOSUS GG 1 CAPSULE. PO (09:00)
[2017-11-17] MEDS: LUBIPROSTONE 8 MCG CAPSULE PO (09:00)
[2017-11-17] MEDS: MORPHINE SULFATE 2 MG/ML DISP.SYRIN. IV (09:08)
[2017-11-17] MEDS: BARIUM SULFATE 40% (APPLE) 148 GM PWD. PO (13:45)
[2017-11-17] MEDS: SMZ/TMP 800/160MG TABLET. PO (15:11)
[2017-11-17] MEDS: fentaNYL 50MCG/HR PATCH 1 PATCH PATCH.TD72 TD (15:13)
== END 2017-11-17 18:24 | DRG 177 ==
LOC: ER 16:32 → 5 SOUTH 19:06
PROC: 30233N1 Transfusion of Nonautologous Red Blood Cells into Peripheral Vein, Percutaneous Approach (ICD-10-PCS; principal; 2017-11-13)
DX: J15.6 Pneumonia due to other Gram-negative bacteria (principal); N17.0 Acute kidney failure with tubular necrosis; J96.21 Acute and chronic respiratory failure with hypoxia; E44.0 Moderate protein-calorie malnutrition; E87.3 Alkalosis; I50.23 Acute on chronic systolic (congestive) heart failure; E66.01 Morbid (severe) obesity due to excess calories; D62 Acute posthemorrhagic anemia; I48.91 Unspecified atrial fibrillation; I13.0 Hypertensive heart and chronic kidney disease with heart failure and stage 1 through stage 4 chronic kidney disease, or unspecified chronic kidney disease; L03.115 Cellulitis of right lower limb; Z68.41 Body mass index [BMI] 40.0-44.9, adult; J44.0 Chronic obstructive pulmonary disease with (acute) lower respiratory infection; L03.116 Cellulitis of left lower limb; J18.9 Pneumonia, unspecified organism; E87.5 Hyperkalemia; G62.9 Polyneuropathy, unspecified; B35.9 Dermatophytosis, unspecified; E03.9 Hypothyroidism, unspecified; F03.90 Unspecified dementia, unspecified severity, without behavioral disturbance, psychotic disturbance, mood disturbance, and anxiety; F32.9 Major depressive disorder, single episode, unspecified; F41.9 Anxiety disorder, unspecified; I25.10 Atherosclerotic heart disease of native coronary artery without angina pectoris; I87.2 Venous insufficiency (chronic) (peripheral); K21.9 Gastro-esophageal reflux disease without esophagitis; K57.90 Diverticulosis of intestine, part unspecified, without perforation or abscess without bleeding; L40.9 Psoriasis, unspecified; M19.90 Unspecified osteoarthritis, unspecified site; N18.3 Chronic kidney disease, stage 3 (moderate); R04.0 Epistaxis; M54.5 Low back pain; Z96.651 Presence of right artificial knee joint; Z66 Do not resuscitate; G89.29 Other chronic pain; Z80.0 Family history of malignant neoplasm of digestive organs; Z82.3 Family history of stroke; Z83.3 Family history of diabetes mellitus; Z86.73 Personal history of transient ischemic attack (TIA), and cerebral infarction without residual deficits; Z87.891 Personal history of nicotine dependence; Z90.49 Acquired absence of other specified parts of digestive tract; Z90.710 Acquired absence of both cervix and uterus; Z99.81 Dependence on supplemental oxygen; Z87.440 Personal history of urinary (tract) infections; Z88.1 Allergy status to other antibiotic agents; Z88.0 Allergy status to penicillin; Z88.8 Allergy status to other drugs, medicaments and biological substances; Z98.49 Cataract extraction status, unspecified eye
CPT/HCPCS: 36415; 70450; 71045; 74230; 80048; 80053; 81001; 82274; 82553; 82607; 82728; 82746; 83540; 83550; 83880; 84484; 85007; 85025; 86850; 86900; 86901; 86920; 87086; 87804; 87804-59; 92526-GN; 92610-GN; 92611-GN; 93005; 94640; 94760; 97116-GP; 97162-GP; 97166-GO; 97530-GP; 97535-GO; 99285; 99285-25; C9113; J1756; J2185; J2270; J7030; J7050; J7613; J7620; P9016; Q0163

== ENCOUNTER 2017-11-20 20:33 | Inpatient (IN) | payer MEDICARE, BC ==
[2017-11-20] MEDS: IPRATRPIUM/ALBUTEROL 0.5/2.5MG 3 ML NEBU. NEB (20:44)
[2017-11-20 21:05] LABS: BASO % 0 % (0-3); EOS # 0.1 x10^3/uL (0.0-0.7); EOS % 1 % (0-3); HEMATOCRIT 22.6 % (36.0-47.0); HEMOGLOBIN 7.5 g/dL (12.0-15.5); LYMPH # 1.9 x10^3/uL (1.0-4.8); LYMPH % 19 % (24-48); MEAN CORPUSCULAR HEMOGLOBIN 34 pg (25-35); MEAN CORPUSCULAR HGB CONC 33 g/dL (31-37); MEAN CORPUSCULAR VOLUME 104 fL (79-100); MONO # 2.5 x10^3/uL (0.0-1.1); MONO % 25 % (0-9); NEUT # 5.6 x10^3uL (1.8-7.7); NEUT % 56 % (31-73); PLATELET COUNT 163 x10^3/uL (140-400); RED BLOOD COUNT 2.19 x10^6/uL (3.50-5.40)
[2017-11-20 21:08] LABS: ADD MAN DIFF? YES
[2017-11-20] MEDS ORDERED: ACETAMINOPHEN 325 MG TABLET. PO (21:45)
[2017-11-20] MEDS ORDERED: ONDANSETRON PF 4 MG/2 ML VIAL. IV (21:45)
[2017-11-20] MEDS: 0.9 % SODIUM CHLORIDE 10 ML DISP.SYRIN. IV (21:50)
[2017-11-20 21:52] LABS: INFLUENZA A PATIENT NEGATIVE (NEGATIVE); INFLUENZA B PATIENT NEGATIVE (NEGATIVE); OBC FLU VALID
[2017-11-20] MEDS: methylPREDNISolone SOD SUCC PF 125 MG/2 ML VIAL. IV ×2 (21:52→23:58)
[2017-11-20 21:55] LABS: ANION GAP 7 (6-14); BLOOD UREA NITROGEN 34 mg/dL (7-20); BUN/CREATININE RATIO 17 (6-20); CALCIUM 9.5 mg/dL (8.5-10.1); CARBON DIOXIDE 32 mmol/L (21-32); CHLORIDE 98 mmol/L (98-107); GFR 23.9; GLUCOSE 131 mg/dL (70-99); POTASSIUM 5.9 mmol/L (3.5-5.1); SODIUM 137 mmol/L (136-145)
[2017-11-20 21:57] LABS: ALBUMIN 2.8 g/dL (3.4-5.0); ALBUMIN/GLOBULIN RATIO 0.6 (1.0-1.7); ALK PHOS 77 U/L (46-116); ALT (SGPT) 23 U/L (14-59); AST (SGOT) 33 U/L (15-37); TOTAL BILIRUBIN 0.3 mg/dL (0.2-1.0); TOTAL PROTEIN 7.3 g/dL (6.4-8.2)
[2017-11-20] MEDS: IV NORMAL SALINE 1000ML BAG 1,000 ML IV (22:00)
[2017-11-20 22:01] LABS: TROPONINI < 0.017 ng/mL (0.000-0.055)
[2017-11-20 22:07] LABS: NT-PRO BNP 807 pg/mL (0-449)
[2017-11-20 22:07] LABS: CKMB INDEX 2.7 % (0-4); CKMB MASS 2.9 ng/mL (0.0-3.6); CREATINE KINASE 109 U/L (26-192)
[2017-11-20 22:13] LABS: % ATYL 1 % (0-0); % BANDS 15 % (0-9); % EOS 2 % (0-5); % LYMPHS 11 % (24-48); % METAS 2 % (0-0); % MONOS 24 % (0-10); % MYELOS 6 % (0-0); % SEGS 39 % (35-66); PLT ESTIMATE ADEQUATE (ADEQUATE)
[2017-11-20 22:14] LABS: ANISOCYTOSIS SLIGHT
[2017-11-21] MEDS ORDERED: HYDROcodone/APAP 10/325 1 TAB TABLET PO
[2017-11-21] MEDS ORDERED: DOCUSATE SODIUM 100 MG CAPSULE. PO
[2017-11-21] MEDS ORDERED: BISACODYL 10 MG SUPP.RECT. RC
[2017-11-21] MEDS: FUROSEMIDE 40 MG/4 ML VIAL. IVP (00:42)
[2017-11-21 04:48] LABS: BASO % 0 % (0-3); EOS % 0 % (0-3); HEMATOCRIT 21.2 % (36.0-47.0); LYMPH # 0.8 x10^3/uL (1.0-4.8); LYMPH % 16 % (24-48); MEAN CORPUSCULAR HEMOGLOBIN 34 pg (25-35); MEAN CORPUSCULAR HGB CONC 33 g/dL (31-37); MEAN CORPUSCULAR VOLUME 104 fL (79-100); MONO # 0.2 x10^3/uL (0.0-1.1); MONO % 4 % (0-9); NEUT # 4.3 x10^3uL (1.8-7.7); NEUT % 80 % (31-73); PLATELET COUNT 129 x10^3/uL (140-400); RED BLOOD COUNT 2.04 x10^6/uL (3.50-5.40); RED CELL DISTRIBUTION WIDTH 16.1 % (11.5-14.5); WHITE BLOOD COUNT 5.3 x10^3/uL (4.0-11.0)
[2017-11-21 05:24] LABS: ANION GAP 5 (6-14); BLOOD UREA NITROGEN 36 mg/dL (7-20); CALCIUM 9.1 mg/dL (8.5-10.1); CARBON DIOXIDE 32 mmol/L (21-32); CHLORIDE 100 mmol/L (98-107); CREATININE 1.9 mg/dL (0.6-1.0); GFR 25.3; GLUCOSE 146 mg/dL (70-99); SODIUM 137 mmol/L (136-145)
[2017-11-21 05:27] LABS: POTASSIUM 5.6 mmol/L (3.5-5.1)
[2017-11-21 05:34] LABS: ADD MAN DIFF? YES; HEMOGLOBIN 6.9 g/dL (12.0-15.5)
[2017-11-21] MEDS: methylPREDNISolone SOD SUCC PF 125 MG/2 ML VIAL. IV ×4 (06:42→22:47)
[2017-11-21] MEDS: PANTOPRAZOLE 40 MG TABLET.DR. PO (07:30)
[2017-11-21] MEDS: IPRATRPIUM/ALBUTEROL 0.5/2.5MG 3 ML NEBU. NEB ×4 (07:32→19:53)
[2017-11-21] MEDS: CLOBETASOL EMOLLIENT 0.05% TOPICAL CREAM 15GM TUBE. TP (09:00)
[2017-11-21] MEDS: LUBIPROSTONE 8 MCG CAPSULE PO ×2 (09:00→22:28)
[2017-11-21] MEDS: FERROUS SULFATE 325 MG TABLET. PO ×3 (09:00→22:28)
[2017-11-21] MEDS: GABAPENTIN 100 MG CAPSULE. PO ×2 (09:00→22:28)
[2017-11-21] MEDS: LEVOTHYROXINE 75 MCG TABLET PO (09:52)
[2017-11-21] MEDS: ASPIRIN ENTERIC COATED 81 MG TABLET.DR. PO (09:53)
[2017-11-21] MEDS: APIXABAN 5 MG TABLET. PO (09:53)
[2017-11-21 13:41] LABS: % BANDS 22 % (0-9); % LYMPHS 12 % (24-48); % METAS 1 % (0-0); % MONOS 2 % (0-10); % MYELOS 1 % (0-0); % SEGS 62 % (35-66); ANISOCYTOSIS SLIGHT; PLT ESTIMATE ADEQUATE (ADEQUATE)
[2017-11-21] MEDS: ANTI-COAG MONITOR BY PHARMACY. MC ×2 (14:43→14:48)
[2017-11-21] MEDS: fentaNYL 50MCG/HR PATCH 1 PATCH PATCH.TD72 TD (15:26)
[2017-11-21] MEDS: DOXYCYCLINE HYCLATE 100 MG TABLET PO ×2 (15:26→22:28)
[2017-11-21] MEDS: FUROSEMIDE 20 MG/2 ML VIAL. IVP (15:27)
[2017-11-21] MEDS: SODIUM POLYSTYRENE SULFONATE 15 GM/60 ML ORAL.SUSP. PO (22:21)
[2017-11-21] MEDS: LACTOBACILLUS RHAMNOSUS GG 1 CAPSULE. PO (22:28)
[2017-11-21] MEDS: traZODone 50 MG TABLET. PO (22:28)
[2017-11-21] MEDS: APIXABAN 2.5 MG TABLET. PO (22:28)
[2017-11-21] MEDS: clonazePAM 0.5 MG TABLET PO (22:28)
[2017-11-22 05:14] LABS: ADD MAN DIFF? NO
[2017-11-22 05:29] LABS: BASO % 0 % (0-3); EOS % 0 % (0-3); HEMOGLOBIN 7.2 g/dL (12.0-15.5); LYMPH # 0.7 x10^3/uL (1.0-4.8); LYMPH % 15 % (24-48); MEAN CORPUSCULAR HEMOGLOBIN 32 pg (25-35); MEAN CORPUSCULAR HGB CONC 33 g/dL (31-37); MEAN CORPUSCULAR VOLUME 99 fL (79-100); MONO # 0.2 x10^3/uL (0.0-1.1); MONO % 4 % (0-9); NEUT # 3.4 x10^3uL (1.8-7.7); NEUT % 80 % (31-73); PLATELET COUNT 117 x10^3/uL (140-400); RED BLOOD COUNT 2.23 x10^6/uL (3.50-5.40); RED CELL DISTRIBUTION WIDTH 19.1 % (11.5-14.5); WHITE BLOOD COUNT 4.3 x10^3/uL (4.0-11.0)
[2017-11-22 05:38] LABS: ANION GAP 5 (6-14); BLOOD UREA NITROGEN 38 mg/dL (7-20); CALCIUM 8.4 mg/dL (8.5-10.1); CARBON DIOXIDE 36 mmol/L (21-32); CHLORIDE 101 mmol/L (98-107); CREATININE 1.6 mg/dL (0.6-1.0); GFR 30.9; GLUCOSE 175 mg/dL (70-99); POTASSIUM 4.6 mmol/L (3.5-5.1); SODIUM 142 mmol/L (136-145)
[2017-11-22] MEDS: methylPREDNISolone SOD SUCC PF 125 MG/2 ML VIAL. IV ×4 (06:14→22:04)
[2017-11-22] MEDS: PANTOPRAZOLE 40 MG TABLET.DR. PO (06:15)
[2017-11-22] MEDS: LEVOTHYROXINE 75 MCG TABLET PO (06:15)
[2017-11-22] MEDS: ANTI-COAG MONITOR BY PHARMACY. MC (08:51)
[2017-11-22] MEDS: CLOBETASOL EMOLLIENT 0.05% TOPICAL CREAM 15GM TUBE. TP (09:00)
[2017-11-22] MEDS: GABAPENTIN 100 MG CAPSULE. PO ×2 (09:31→22:01)
[2017-11-22] MEDS: APIXABAN 2.5 MG TABLET. PO ×2 (09:32→22:01)
[2017-11-22] MEDS: FERROUS SULFATE 325 MG TABLET. PO ×3 (09:32→22:01)
[2017-11-22] MEDS: LACTOBACILLUS RHAMNOSUS GG 1 CAPSULE. PO ×2 (09:32→22:01)
[2017-11-22] MEDS: ASPIRIN ENTERIC COATED 81 MG TABLET.DR. PO (09:32)
[2017-11-22] MEDS: LUBIPROSTONE 8 MCG CAPSULE PO ×2 (09:32→22:00)
[2017-11-22] MEDS: DOXYCYCLINE HYCLATE 100 MG TABLET PO ×2 (09:32→22:01)
[2017-11-22] MEDS: guaiFENesin DM 200MG/20MG 10 ML SYRUP PO (09:34)
[2017-11-22] MEDS: IPRATRPIUM/ALBUTEROL 0.5/2.5MG 3 ML NEBU. NEB ×2 (15:25→19:22)
[2017-11-22 16:02] LABS: IMMEDIATE SPIN CROSSMATCH 1 2
[2017-11-22] MEDS: traZODone 50 MG TABLET. PO (22:00)
[2017-11-22] MEDS: clonazePAM 0.5 MG TABLET PO (22:00)
[2017-11-23] MEDS: guaiFENesin DM 200MG/20MG 10 ML SYRUP PO ×2 (00:55→20:23)
[2017-11-23 05:16] LABS: ADD MAN DIFF? NO
[2017-11-23 05:30] LABS: BASO % 0 % (0-3); EOS % 0 % (0-3); HEMOGLOBIN 8.9 g/dL (12.0-15.5); LYMPH # 0.5 x10^3/uL (1.0-4.8); LYMPH % 12 % (24-48); MEAN CORPUSCULAR HEMOGLOBIN 32 pg (25-35); MEAN CORPUSCULAR HGB CONC 33 g/dL (31-37); MEAN CORPUSCULAR VOLUME 97 fL (79-100); MONO # 0.2 x10^3/uL (0.0-1.1); MONO % 4 % (0-9); NEUT # 3.6 x10^3uL (1.8-7.7); NEUT % 84 % (31-73); PLATELET COUNT 132 x10^3/uL (140-400); RED BLOOD COUNT 2.78 x10^6/uL (3.50-5.40); RED CELL DISTRIBUTION WIDTH 19.6 % (11.5-14.5); WHITE BLOOD COUNT 4.3 x10^3/uL (4.0-11.0)
[2017-11-23 05:48] LABS: ALBUMIN 2.6 g/dL (3.4-5.0); ALBUMIN/GLOBULIN RATIO 0.7 (1.0-1.7); ALK PHOS 62 U/L (46-116); ALT (SGPT) 24 U/L (14-59); ANION GAP 2 (6-14); AST (SGOT) 26 U/L (15-37); BLOOD UREA NITROGEN 38 mg/dL (7-20); BUN/CREATININE RATIO 27 (6-20); CALCIUM 8.5 mg/dL (8.5-10.1); CARBON DIOXIDE 38 mmol/L (21-32); CHLORIDE 104 mmol/L (98-107); CREATININE 1.4 mg/dL (0.6-1.0); GLUCOSE 177 mg/dL (70-99); POTASSIUM 4.1 mmol/L (3.5-5.1); SODIUM 144 mmol/L (136-145); TOTAL BILIRUBIN 0.2 mg/dL (0.2-1.0); TOTAL PROTEIN 6.6 g/dL (6.4-8.2)
[2017-11-23] MEDS: methylPREDNISolone SOD SUCC PF 125 MG/2 ML VIAL. IV (06:14)
[2017-11-23] MEDS: LEVOTHYROXINE 75 MCG TABLET PO (06:14)
[2017-11-23] MEDS: PANTOPRAZOLE 40 MG TABLET.DR. PO (06:14)
[2017-11-23] MEDS: IPRATRPIUM/ALBUTEROL 0.5/2.5MG 3 ML NEBU. NEB ×4 (08:00→19:20)
[2017-11-23] MEDS: APIXABAN 2.5 MG TABLET. PO ×2 (08:26→20:23)
[2017-11-23] MEDS: FERROUS SULFATE 325 MG TABLET. PO ×3 (08:27→20:23)
[2017-11-23] MEDS: DOXYCYCLINE HYCLATE 100 MG TABLET PO ×2 (08:27→20:23)
[2017-11-23] MEDS: LACTOBACILLUS RHAMNOSUS GG 1 CAPSULE. PO ×2 (08:27→20:23)
[2017-11-23] MEDS: ASPIRIN ENTERIC COATED 81 MG TABLET.DR. PO (08:27)
[2017-11-23] MEDS: GABAPENTIN 100 MG CAPSULE. PO ×2 (08:27→20:23)
[2017-11-23] MEDS: LUBIPROSTONE 8 MCG CAPSULE PO ×2 (08:28→20:23)
[2017-11-23] MEDS: CLOBETASOL EMOLLIENT 0.05% TOPICAL CREAM 15GM TUBE. TP (08:28)
[2017-11-23] MEDS: methylPREDNISolone SOD SUCC PF 40 MG/ML VIAL. IV ×2 (15:07→21:27)
[2017-11-23] MEDS: DIGOXIN IV 500 MCG/2 ML AMPUL. IV ×2 (18:14→19:00)
[2017-11-23] MEDS: dilTIAZem VIAL 125 MG in IV DEXTROSE 5% 100 ML IV (18:16)
[2017-11-23] MEDS: traZODone 50 MG TABLET. PO (20:23)
[2017-11-23] MEDS: clonazePAM 0.5 MG TABLET PO (20:23)
[2017-11-24] MEDS: methylPREDNISolone SOD SUCC PF 40 MG/ML VIAL. IV ×3 (05:19→21:13)
[2017-11-24] MEDS: LEVOTHYROXINE 75 MCG TABLET PO (05:19)
[2017-11-24] MEDS: guaiFENesin DM 200MG/20MG 10 ML SYRUP PO ×3 (06:01→21:14)
[2017-11-24] MEDS: IPRATRPIUM/ALBUTEROL 0.5/2.5MG 3 ML NEBU. NEB ×4 (07:43→20:48)
[2017-11-24 07:51] LABS: ADD MAN DIFF? NO
[2017-11-24 07:53] LABS: BASO % 0 % (0-3); EOS % 0 % (0-3); HEMATOCRIT 28.6 % (36.0-47.0); HEMOGLOBIN 9.3 g/dL (12.0-15.5); LYMPH # 0.5 x10^3/uL (1.0-4.8); LYMPH % 9 % (24-48); MEAN CORPUSCULAR HEMOGLOBIN 32 pg (25-35); MEAN CORPUSCULAR HGB CONC 33 g/dL (31-37); MEAN CORPUSCULAR VOLUME 98 fL (79-100); MONO # 0.2 x10^3/uL (0.0-1.1); MONO % 4 % (0-9); NEUT # 4.6 x10^3uL (1.8-7.7); NEUT % 87 % (31-73); PLATELET COUNT 135 x10^3/uL (140-400); RED BLOOD COUNT 2.92 x10^6/uL (3.50-5.40); RED CELL DISTRIBUTION WIDTH 19.3 % (11.5-14.5); WHITE BLOOD COUNT 5.3 x10^3/uL (4.0-11.0)
[2017-11-24 08:09] LABS: BLOOD UREA NITROGEN 45 mg/dL (7-20); CREATININE 1.4 mg/dL (0.6-1.0); GLUCOSE 176 mg/dL (70-99); SODIUM 143 mmol/L (136-145)
[2017-11-24 08:10] LABS: ANION GAP 1 (6-14); CARBON DIOXIDE 37 mmol/L (21-32); CHLORIDE 105 mmol/L (98-107); POTASSIUM 4.7 mmol/L (3.5-5.1)
[2017-11-24] MEDS: DOXYCYCLINE HYCLATE 100 MG TABLET PO (08:26)
[2017-11-24] MEDS: LUBIPROSTONE 8 MCG CAPSULE PO ×2 (08:26→21:12)
[2017-11-24] MEDS: GABAPENTIN 100 MG CAPSULE. PO ×2 (08:26→21:12)
[2017-11-24] MEDS: FERROUS SULFATE 325 MG TABLET. PO ×3 (08:27→21:12)
[2017-11-24] MEDS: PANTOPRAZOLE 40 MG TABLET.DR. PO (08:27)
[2017-11-24] MEDS: LACTOBACILLUS RHAMNOSUS GG 1 CAPSULE. PO ×2 (08:27→21:12)
[2017-11-24] MEDS: APIXABAN 2.5 MG TABLET. PO (08:27)
[2017-11-24] MEDS: ASPIRIN ENTERIC COATED 81 MG TABLET.DR. PO (08:27)
[2017-11-24] MEDS: fentaNYL 50MCG/HR PATCH 1 PATCH PATCH.TD72 TD (08:28)
[2017-11-24] MEDS: CLOBETASOL EMOLLIENT 0.05% TOPICAL CREAM 15GM TUBE. TP (08:46)
[2017-11-24] MEDS: ANTI-COAG MONITOR BY PHARMACY. MC (11:07)
[2017-11-24 17:01] LABS: CHOLESTEROL 149 mg/dL (0-200); HDLC 49 mg/dL (40-60); LDLC 92 mg/dL (0-100); NON-HDL CHOLESTEROL 100 mg/dL (0-129); TRIGLYCERIDES 40 mg/dL (0-150); VLDLC 8 mg/dL (0-40)
[2017-11-24] MEDS: AZITHROMYCIN 250 MG TABLET. PO (17:47)
[2017-11-24] MEDS: clonazePAM 0.5 MG TABLET PO (21:12)
[2017-11-24] MEDS: APIXABAN 5 MG TABLET. PO (21:12)
[2017-11-24] MEDS: traZODone 50 MG TABLET. PO (21:12)
[2017-11-25] MEDS: guaiFENesin DM 200MG/20MG 10 ML SYRUP PO ×2 (02:46→20:46)
[2017-11-25] MEDS: ACETAMINOPHEN 325 MG TABLET. PO (02:48)
[2017-11-25 04:47] LABS: ADD MAN DIFF? NO
[2017-11-25 05:01] LABS: BASO % 0 % (0-3); EOS % 0 % (0-3); HEMATOCRIT 27.5 % (36.0-47.0); HEMOGLOBIN 9.1 g/dL (12.0-15.5); LYMPH # 0.4 x10^3/uL (1.0-4.8); LYMPH % 5 % (24-48); MEAN CORPUSCULAR HEMOGLOBIN 33 pg (25-35); MEAN CORPUSCULAR HGB CONC 33 g/dL (31-37); MEAN CORPUSCULAR VOLUME 99 fL (79-100); MONO # 0.3 x10^3/uL (0.0-1.1); MONO % 3 % (0-9); NEUT # 8.3 x10^3uL (1.8-7.7); NEUT % 92 % (31-73); PLATELET COUNT 142 x10^3/uL (140-400); RED BLOOD COUNT 2.79 x10^6/uL (3.50-5.40); RED CELL DISTRIBUTION WIDTH 19.4 % (11.5-14.5)
[2017-11-25 05:22] LABS: ANION GAP 3 (6-14); BLOOD UREA NITROGEN 44 mg/dL (7-20); CARBON DIOXIDE 37 mmol/L (21-32); CHLORIDE 104 mmol/L (98-107); CREATININE 1.3 mg/dL (0.6-1.0); GFR 39.2; GLUCOSE 211 mg/dL (70-99); POTASSIUM 4.9 mmol/L (3.5-5.1); SODIUM 144 mmol/L (136-145)
[2017-11-25] MEDS: methylPREDNISolone SOD SUCC PF 40 MG/ML VIAL. IV ×3 (06:22→22:18)
[2017-11-25] MEDS: IPRATRPIUM/ALBUTEROL 0.5/2.5MG 3 ML NEBU. NEB ×5 (08:00→20:43)
[2017-11-25] MEDS: LACTOBACILLUS RHAMNOSUS GG 1 CAPSULE. PO ×2 (08:43→20:45)
[2017-11-25] MEDS: APIXABAN 5 MG TABLET. PO ×2 (08:43→20:46)
[2017-11-25] MEDS: GABAPENTIN 100 MG CAPSULE. PO ×2 (08:43→20:46)
[2017-11-25] MEDS: LUBIPROSTONE 8 MCG CAPSULE PO ×2 (08:43→20:45)
[2017-11-25] MEDS: FERROUS SULFATE 325 MG TABLET. PO ×3 (08:43→20:46)
[2017-11-25] MEDS: DIGOXIN IV 500 MCG/2 ML AMPUL. IV (08:43)
[2017-11-25] MEDS: PANTOPRAZOLE 40 MG TABLET.DR. PO (08:43)
[2017-11-25] MEDS: ASPIRIN ENTERIC COATED 81 MG TABLET.DR. PO (08:43)
[2017-11-25] MEDS: LEVOTHYROXINE 75 MCG TABLET PO (08:43)
[2017-11-25] MEDS: CLOBETASOL EMOLLIENT 0.05% TOPICAL CREAM 15GM TUBE. TP (09:00)
[2017-11-25] MEDS: ANTI-COAG MONITOR BY PHARMACY. MC (10:17)
[2017-11-25] MEDS: AZITHROMYCIN 250 MG TABLET. PO (12:48)
[2017-11-25] MEDS: FUROSEMIDE 40 MG/4 ML VIAL. IVP (15:28)
[2017-11-25] MEDS: clonazePAM 0.5 MG TABLET PO (20:46)
[2017-11-25] MEDS: traZODone 50 MG TABLET. PO (20:46)
[2017-11-25] MEDS: ATORVASTATIN CALCIUM 10 MG TABLET. PO (20:46)
[2017-11-26 05:20] LABS: ADD MAN DIFF? NO
[2017-11-26 05:37] LABS: BASO % 0 % (0-3); EOS % 0 % (0-3); HEMATOCRIT 28.6 % (36.0-47.0); HEMOGLOBIN 9.1 g/dL (12.0-15.5); LYMPH # 0.4 x10^3/uL (1.0-4.8); LYMPH % 4 % (24-48); MEAN CORPUSCULAR HEMOGLOBIN 31 pg (25-35); MEAN CORPUSCULAR HGB CONC 32 g/dL (31-37); MEAN CORPUSCULAR VOLUME 99 fL (79-100); MONO # 0.3 x10^3/uL (0.0-1.1); MONO % 3 % (0-9); NEUT # 11.4 x10^3uL (1.8-7.7); NEUT % 94 % (31-73); PLATELET COUNT 134 x10^3/uL (140-400); WHITE BLOOD COUNT 12.1 x10^3/uL (4.0-11.0)
[2017-11-26 06:08] LABS: ANION GAP 6 (6-14); BLOOD UREA NITROGEN 44 mg/dL (7-20); CALCIUM 9.2 mg/dL (8.5-10.1); CARBON DIOXIDE 36 mmol/L (21-32); CHLORIDE 102 mmol/L (98-107); CREATININE 1.2 mg/dL (0.6-1.0); GLUCOSE 175 mg/dL (70-99); POTASSIUM 4.5 mmol/L (3.5-5.1); SODIUM 144 mmol/L (136-145)
[2017-11-26] MEDS: methylPREDNISolone SOD SUCC PF 40 MG/ML VIAL. IV ×3 (06:09→21:26)
[2017-11-26] MEDS: LEVOTHYROXINE 75 MCG TABLET PO ×2 (06:13→08:48)
[2017-11-26] MEDS: IPRATRPIUM/ALBUTEROL 0.5/2.5MG 3 ML NEBU. NEB ×4 (07:46→18:17)
[2017-11-26] MEDS: GABAPENTIN 100 MG CAPSULE. PO ×2 (08:48→21:21)
[2017-11-26] MEDS: PANTOPRAZOLE 40 MG TABLET.DR. PO (08:48)
[2017-11-26] MEDS: FUROSEMIDE 40 MG/4 ML VIAL. IVP (08:48)
[2017-11-26] MEDS: LUBIPROSTONE 8 MCG CAPSULE PO ×2 (08:48→21:26)
[2017-11-26] MEDS: ASPIRIN ENTERIC COATED 81 MG TABLET.DR. PO (08:49)
[2017-11-26] MEDS: APIXABAN 5 MG TABLET. PO ×2 (08:49→21:22)
[2017-11-26] MEDS: LACTOBACILLUS RHAMNOSUS GG 1 CAPSULE. PO ×2 (08:49→21:26)
[2017-11-26] MEDS: FERROUS SULFATE 325 MG TABLET. PO ×3 (08:49→21:21)
[2017-11-26] MEDS: CLOBETASOL EMOLLIENT 0.05% TOPICAL CREAM 15GM TUBE. TP (09:00)
[2017-11-26] MEDS: AZITHROMYCIN 250 MG TABLET. PO (10:04)
[2017-11-26] MEDS: ANTI-COAG MONITOR BY PHARMACY. MC (13:29)
[2017-11-26] MEDS: guaiFENesin DM 200MG/20MG 10 ML SYRUP PO (21:21)
[2017-11-26] MEDS: ATORVASTATIN CALCIUM 10 MG TABLET. PO (21:22)
[2017-11-26] MEDS: traZODone 50 MG TABLET. PO (21:23)
[2017-11-26] MEDS: clonazePAM 0.5 MG TABLET PO (21:23)
[2017-11-27] MEDS: guaiFENesin DM 200MG/20MG 10 ML SYRUP PO ×2 (02:33→09:29)
[2017-11-27 04:50] LABS: BASO % 0 % (0-3); EOS % 0 % (0-3); HEMATOCRIT 28.7 % (36.0-47.0); HEMOGLOBIN 9.3 g/dL (12.0-15.5); LYMPH # 0.5 x10^3/uL (1.0-4.8); LYMPH % 3 % (24-48); MEAN CORPUSCULAR HEMOGLOBIN 32 pg (25-35); MEAN CORPUSCULAR HGB CONC 32 g/dL (31-37); MEAN CORPUSCULAR VOLUME 97 fL (79-100); MONO # 0.4 x10^3/uL (0.0-1.1); MONO % 2 % (0-9); NEUT # 16.7 x10^3uL (1.8-7.7); NEUT % 95 % (31-73); PLATELET COUNT 131 x10^3/uL (140-400); RED BLOOD COUNT 2.95 x10^6/uL (3.50-5.40); RED CELL DISTRIBUTION WIDTH 18.2 % (11.5-14.5); WHITE BLOOD COUNT 17.7 x10^3/uL (4.0-11.0)
[2017-11-27 04:56] LABS: ADD MAN DIFF? YES
[2017-11-27 05:44] LABS: ANION GAP 6 (6-14); BLOOD UREA NITROGEN 47 mg/dL (7-20); CALCIUM 9.2 mg/dL (8.5-10.1); CARBON DIOXIDE 36 mmol/L (21-32); CHLORIDE 99 mmol/L (98-107); CREATININE 1.4 mg/dL (0.6-1.0); GLUCOSE 204 mg/dL (70-99); POTASSIUM 4.7 mmol/L (3.5-5.1); SODIUM 141 mmol/L (136-145)
[2017-11-27] MEDS: methylPREDNISolone SOD SUCC PF 40 MG/ML VIAL. IV ×3 (06:46→20:50)
[2017-11-27] MEDS: IPRATRPIUM/ALBUTEROL 0.5/2.5MG 3 ML NEBU. NEB ×4 (08:06→20:19)
[2017-11-27] MEDS: CLOBETASOL EMOLLIENT 0.05% TOPICAL CREAM 15GM TUBE. TP (09:00)
[2017-11-27] MEDS: GABAPENTIN 100 MG CAPSULE. PO ×2 (09:30→20:49)
[2017-11-27] MEDS: ASPIRIN ENTERIC COATED 81 MG TABLET.DR. PO (09:30)
[2017-11-27] MEDS: LACTOBACILLUS RHAMNOSUS GG 1 CAPSULE. PO ×2 (09:30→20:49)
[2017-11-27] MEDS: LUBIPROSTONE 8 MCG CAPSULE PO ×2 (09:30→20:49)
[2017-11-27] MEDS: FERROUS SULFATE 325 MG TABLET. PO ×3 (09:30→20:49)
[2017-11-27] MEDS: PANTOPRAZOLE 40 MG TABLET.DR. PO (09:31)
[2017-11-27] MEDS: AZITHROMYCIN 250 MG TABLET. PO (09:31)
[2017-11-27] MEDS: APIXABAN 5 MG TABLET. PO ×2 (09:31→20:49)
[2017-11-27] MEDS: FUROSEMIDE 40 MG/4 ML VIAL. IVP (09:32)
[2017-11-27 11:04] LABS: % BANDS 3 % (0-9); % LYMPHS 7 % (24-48); % MONOS 5 % (0-10); % SEGS 85 % (35-66); PLT ESTIMATE DECREASED (ADEQUATE); POIKILOCYTOSIS SLIGHT
[2017-11-27] MEDS: MEROPENEM 500 MG in IV NORMAL SALINE 50ML 50 ML IV ×2 (11:09→17:41)
[2017-11-27] MEDS: fentaNYL 50MCG/HR PATCH 1 PATCH PATCH.TD72 TD (11:18)
[2017-11-27] MEDS: clonazePAM 0.5 MG TABLET PO (20:49)
[2017-11-27] MEDS: ATORVASTATIN CALCIUM 10 MG TABLET. PO (20:49)
[2017-11-27] MEDS: traZODone 50 MG TABLET. PO (20:51)
[2017-11-28] MEDS: MEROPENEM 500 MG in IV NORMAL SALINE 50ML 50 ML IV ×3 (00:45→18:32)
[2017-11-28] MEDS: methylPREDNISolone SOD SUCC PF 40 MG/ML VIAL. IV ×2 (05:21→13:56)
[2017-11-28] MEDS: PANTOPRAZOLE 40 MG TABLET.DR. PO (06:02)
[2017-11-28] MEDS: LEVOTHYROXINE 75 MCG TABLET PO (06:02)
[2017-11-28] MEDS: IPRATRPIUM/ALBUTEROL 0.5/2.5MG 3 ML NEBU. NEB ×4 (08:00→20:43)
[2017-11-28] MEDS: GABAPENTIN 100 MG CAPSULE. PO ×2 (08:11→20:00)
[2017-11-28] MEDS: LUBIPROSTONE 8 MCG CAPSULE PO ×2 (08:11→20:00)
[2017-11-28] MEDS: LACTOBACILLUS RHAMNOSUS GG 1 CAPSULE. PO ×2 (08:11→19:59)
[2017-11-28] MEDS: FUROSEMIDE 40 MG TABLET. PO (08:11)
[2017-11-28] MEDS: CLOBETASOL EMOLLIENT 0.05% TOPICAL CREAM 15GM TUBE. TP (08:11)
[2017-11-28] MEDS: FERROUS SULFATE 325 MG TABLET. PO ×3 (08:12→19:59)
[2017-11-28] MEDS: ASPIRIN ENTERIC COATED 81 MG TABLET.DR. PO (08:12)
[2017-11-28] MEDS: APIXABAN 5 MG TABLET. PO ×2 (08:12→20:00)
[2017-11-28 08:19] LABS: ADD MAN DIFF? NO
[2017-11-28 08:35] LABS: CHLORIDE 99 mmol/L (98-107); POTASSIUM 4.4 mmol/L (3.5-5.1)
[2017-11-28 08:41] LABS: ANION GAP 5 (6-14); BLOOD UREA NITROGEN 50 mg/dL (7-20); CALCIUM 9.5 mg/dL (8.5-10.1); CARBON DIOXIDE 35 mmol/L (21-32); CREATININE 1.2 mg/dL (0.6-1.0); GLUCOSE 184 mg/dL (70-99); SODIUM 139 mmol/L (136-145)
[2017-11-28 08:49] LABS: BASO % 0 % (0-3); EOS % 0 % (0-3); HEMATOCRIT 32.2 % (36.0-47.0); HEMOGLOBIN 10.3 g/dL (12.0-15.5); LYMPH # 0.6 x10^3/uL (1.0-4.8); LYMPH % 3 % (24-48); MEAN CORPUSCULAR HEMOGLOBIN 31 pg (25-35); MEAN CORPUSCULAR HGB CONC 32 g/dL (31-37); MEAN CORPUSCULAR VOLUME 97 fL (79-100); MONO # 0.5 x10^3/uL (0.0-1.1); MONO % 3 % (0-9); NEUT # 17.4 x10^3uL (1.8-7.7); NEUT % 94 % (31-73); PLATELET COUNT 131 x10^3/uL (140-400); RED BLOOD COUNT 3.31 x10^6/uL (3.50-5.40); RED CELL DISTRIBUTION WIDTH 17.8 % (11.5-14.5); WHITE BLOOD COUNT 18.6 x10^3/uL (4.0-11.0)
[2017-11-28] MEDS: ANTI-COAG MONITOR BY PHARMACY. MC (15:03)
[2017-11-28] MEDS: traZODone 50 MG TABLET. PO (20:00)
[2017-11-28] MEDS: clonazePAM 0.5 MG TABLET PO (20:00)
[2017-11-28] MEDS: guaiFENesin DM 200MG/20MG 10 ML SYRUP PO (20:00)
[2017-11-28] MEDS: ATORVASTATIN CALCIUM 10 MG TABLET. PO (20:00)
[2017-11-29] MEDS: MEROPENEM 500 MG in IV NORMAL SALINE 50ML 50 ML IV ×3 (00:02→17:17)
[2017-11-29 05:00] LABS: ADD MAN DIFF? NO
[2017-11-29 05:17] LABS: BASO % 0 % (0-3); EOS % 0 % (0-3); HEMATOCRIT 29.8 % (36.0-47.0); HEMOGLOBIN 9.6 g/dL (12.0-15.5); LYMPH # 0.8 x10^3/uL (1.0-4.8); LYMPH % 4 % (24-48); MEAN CORPUSCULAR HEMOGLOBIN 31 pg (25-35); MEAN CORPUSCULAR HGB CONC 32 g/dL (31-37); MEAN CORPUSCULAR VOLUME 96 fL (79-100); MONO # 1.7 x10^3/uL (0.0-1.1); MONO % 8 % (0-9); NEUT # 19.1 x10^3uL (1.8-7.7); NEUT % 88 % (31-73); PLATELET COUNT 115 x10^3/uL (140-400); RED BLOOD COUNT 3.09 x10^6/uL (3.50-5.40); RED CELL DISTRIBUTION WIDTH 18.2 % (11.5-14.5); WHITE BLOOD COUNT 21.6 x10^3/uL (4.0-11.0)
[2017-11-29 05:53] LABS: ANION GAP 6 (6-14); BLOOD UREA NITROGEN 53 mg/dL (7-20); CALCIUM 9.2 mg/dL (8.5-10.1); CARBON DIOXIDE 34 mmol/L (21-32); CHLORIDE 101 mmol/L (98-107); CREATININE 1.4 mg/dL (0.6-1.0); GLUCOSE 148 mg/dL (70-99); POTASSIUM 4.6 mmol/L (3.5-5.1); SODIUM 141 mmol/L (136-145)
[2017-11-29] MEDS: PANTOPRAZOLE 40 MG TABLET.DR. PO (06:20)
[2017-11-29] MEDS: LEVOTHYROXINE 75 MCG TABLET PO (06:20)
[2017-11-29] MEDS: IPRATRPIUM/ALBUTEROL 0.5/2.5MG 3 ML NEBU. NEB ×4 (08:16→19:29)
[2017-11-29] MEDS: ANTI-COAG MONITOR BY PHARMACY. MC (08:55)
[2017-11-29] MEDS: FUROSEMIDE 40 MG TABLET. PO (09:15)
[2017-11-29] MEDS: APIXABAN 5 MG TABLET. PO ×2 (09:16→20:06)
[2017-11-29] MEDS: GABAPENTIN 100 MG CAPSULE. PO ×2 (09:16→20:06)
[2017-11-29] MEDS: LACTOBACILLUS RHAMNOSUS GG 1 CAPSULE. PO ×2 (09:16→20:06)
[2017-11-29] MEDS: ASPIRIN ENTERIC COATED 81 MG TABLET.DR. PO (09:16)
[2017-11-29] MEDS: FERROUS SULFATE 325 MG TABLET. PO ×3 (09:16→20:06)
[2017-11-29] MEDS: LUBIPROSTONE 8 MCG CAPSULE PO ×2 (09:16→20:06)
[2017-11-29] MEDS: NYSTATIN 100,000 UNITS/ML 5 ML ORAL.SUSP. SWSW ×4 (09:16→20:05)
[2017-11-29] MEDS: CLOBETASOL EMOLLIENT 0.05% TOPICAL CREAM 15GM TUBE. TP (09:17)
[2017-11-29] MEDS: guaiFENesin DM 200MG/20MG 10 ML SYRUP PO ×2 (09:29→17:17)
[2017-11-29] MEDS: clonazePAM 0.5 MG TABLET PO (20:06)
[2017-11-29] MEDS: traZODone 50 MG TABLET. PO (20:06)
[2017-11-29] MEDS: ATORVASTATIN CALCIUM 10 MG TABLET. PO (20:06)
[2017-11-30] MEDS: MEROPENEM 500 MG in IV NORMAL SALINE 50ML 50 ML IV ×3 (00:05→18:04)
[2017-11-30 05:28] LABS: BASO % 0 % (0-3); EOS % 0 % (0-3); HEMATOCRIT 30.6 % (36.0-47.0); LYMPH # 1.5 x10^3/uL (1.0-4.8); LYMPH % 9 % (24-48); MEAN CORPUSCULAR HEMOGLOBIN 32 pg (25-35); MEAN CORPUSCULAR HGB CONC 33 g/dL (31-37); MEAN CORPUSCULAR VOLUME 97 fL (79-100); MONO # 3.3 x10^3/uL (0.0-1.1); MONO % 19 % (0-9); NEUT # 12.9 x10^3uL (1.8-7.7); NEUT % 72 % (31-73); PLATELET COUNT 114 x10^3/uL (140-400); RED BLOOD COUNT 3.15 x10^6/uL (3.50-5.40); RED CELL DISTRIBUTION WIDTH 18.5 % (11.5-14.5); WHITE BLOOD COUNT 17.7 x10^3/uL (4.0-11.0)
[2017-11-30 06:11] LABS: ANION GAP 2 (6-14); BLOOD UREA NITROGEN 49 mg/dL (7-20); CALCIUM 8.6 mg/dL (8.5-10.1); CARBON DIOXIDE 38 mmol/L (21-32); CHLORIDE 103 mmol/L (98-107); CREATININE 1.3 mg/dL (0.6-1.0); GFR 39.2; GLUCOSE 100 mg/dL (70-99); POTASSIUM 4.3 mmol/L (3.5-5.1); SODIUM 143 mmol/L (136-145)
[2017-11-30] MEDS: PANTOPRAZOLE 40 MG TABLET.DR. PO (06:15)
[2017-11-30] MEDS: LEVOTHYROXINE 75 MCG TABLET PO (06:15)
[2017-11-30 06:48] LABS: ADD MAN DIFF? YES
[2017-11-30] MEDS: IPRATRPIUM/ALBUTEROL 0.5/2.5MG 3 ML NEBU. NEB ×4 (08:12→18:30)
[2017-11-30] MEDS: LUBIPROSTONE 8 MCG CAPSULE PO ×2 (08:59→21:17)
[2017-11-30] MEDS: GABAPENTIN 100 MG CAPSULE. PO ×2 (08:59→21:16)
[2017-11-30] MEDS: LACTOBACILLUS RHAMNOSUS GG 1 CAPSULE. PO ×2 (08:59→21:15)
[2017-11-30] MEDS: NYSTATIN 100,000 UNITS/ML 5 ML ORAL.SUSP. SWSW ×4 (08:59→21:19)
[2017-11-30] MEDS: FUROSEMIDE 40 MG TABLET. PO (08:59)
[2017-11-30] MEDS: FERROUS SULFATE 325 MG TABLET. PO ×3 (08:59→21:18)
[2017-11-30] MEDS: ASPIRIN ENTERIC COATED 81 MG TABLET.DR. PO (08:59)
[2017-11-30] MEDS: APIXABAN 5 MG TABLET. PO ×2 (08:59→21:17)
[2017-11-30] MEDS: guaiFENesin DM 200MG/20MG 10 ML SYRUP PO ×2 (08:59→18:12)
[2017-11-30] MEDS: CLOBETASOL EMOLLIENT 0.05% TOPICAL CREAM 15GM TUBE. TP ×2 (09:00→09:01)
[2017-11-30] MEDS: fentaNYL 50MCG/HR PATCH 1 PATCH PATCH.TD72 TD (09:01)
[2017-11-30 10:05] LABS: % ATYL 1 % (0-0); % BANDS 5 % (0-9); % LYMPHS 7 % (24-48); % METAS 2 % (0-0); % MONOS 19 % (0-10); % MYELOS 9 % (0-0); % SEGS 57 % (35-66); ANISOCYTOSIS PRESENT; PLT ESTIMATE DECREASED (ADEQUATE)
[2017-11-30] MEDS: HYDROcodone/APAP 5/325MG 1 TAB TABLET PO (12:36)
[2017-11-30] MEDS: ANTI-COAG MONITOR BY PHARMACY. MC (15:07)
[2017-11-30] MEDS: ATORVASTATIN CALCIUM 10 MG TABLET. PO (21:17)
[2017-11-30] MEDS: clonazePAM 0.5 MG TABLET PO (21:18)
[2017-11-30] MEDS: traZODone 50 MG TABLET. PO (21:20)
[2017-12-01] MEDS: MEROPENEM 500 MG in IV NORMAL SALINE 50ML 50 ML IV ×2 (00:29→08:54)
[2017-12-01] MEDS: LEVOTHYROXINE 75 MCG TABLET PO (06:27)
[2017-12-01 06:33] LABS: BASO % 0 % (0-3); EOS # 0.1 x10^3/uL (0.0-0.7); EOS % 0 % (0-3); HEMATOCRIT 31.6 % (36.0-47.0); HEMOGLOBIN 10.3 g/dL (12.0-15.5); LYMPH # 1.9 x10^3/uL (1.0-4.8); LYMPH % 8 % (24-48); MEAN CORPUSCULAR HEMOGLOBIN 31 pg (25-35); MEAN CORPUSCULAR HGB CONC 33 g/dL (31-37); MEAN CORPUSCULAR VOLUME 96 fL (79-100); MONO # 6.1 x10^3/uL (0.0-1.1); MONO % 26 % (0-9); NEUT # 15.7 x10^3uL (1.8-7.7); NEUT % 66 % (31-73); PLATELET COUNT 97 x10^3/uL (140-400); WHITE BLOOD COUNT 23.9 x10^3/uL (4.0-11.0)
[2017-12-01 06:34] LABS: ANION GAP 5 (6-14); BLOOD UREA NITROGEN 43 mg/dL (7-20); CALCIUM 8.7 mg/dL (8.5-10.1); CARBON DIOXIDE 34 mmol/L (21-32); CHLORIDE 103 mmol/L (98-107); CREATININE 1.3 mg/dL (0.6-1.0); GFR 39.2; GLUCOSE 127 mg/dL (70-99); POTASSIUM 5.1 mmol/L (3.5-5.1); SODIUM 142 mmol/L (136-145)
[2017-12-01 07:04] LABS: ADD MAN DIFF? YES
[2017-12-01] MEDS: IPRATRPIUM/ALBUTEROL 0.5/2.5MG 3 ML NEBU. NEB ×2 (07:40→11:15)
[2017-12-01] MEDS: NYSTATIN 100,000 UNITS/ML 5 ML ORAL.SUSP. SWSW (08:54)
[2017-12-01] MEDS: ASPIRIN ENTERIC COATED 81 MG TABLET.DR. PO (08:54)
[2017-12-01] MEDS: LACTOBACILLUS RHAMNOSUS GG 1 CAPSULE. PO (08:54)
[2017-12-01] MEDS: guaiFENesin DM 200MG/20MG 10 ML SYRUP PO (08:54)
[2017-12-01] MEDS: FERROUS SULFATE 325 MG TABLET. PO (08:55)
[2017-12-01] MEDS: APIXABAN 5 MG TABLET. PO (08:55)
[2017-12-01] MEDS: PANTOPRAZOLE 40 MG TABLET.DR. PO (08:55)
[2017-12-01] MEDS: FUROSEMIDE 40 MG TABLET. PO (08:55)
[2017-12-01] MEDS: GABAPENTIN 100 MG CAPSULE. PO (08:55)
[2017-12-01] MEDS: LUBIPROSTONE 8 MCG CAPSULE PO (08:55)
[2017-12-01] MEDS: CLOBETASOL EMOLLIENT 0.05% TOPICAL CREAM 15GM TUBE. TP (08:55)
[2017-12-01 09:30] LABS: % ATYL 1 % (0-0); % BANDS 7 % (0-9); % LYMPHS 4 % (24-48); % METAS 1 % (0-0); % MONOS 24 % (0-10); % MYELOS 13 % (0-0); % SEGS 50 % (35-66); ANISOCYTOSIS SLIGHT; PLT ESTIMATE DECREASED (ADEQUATE)
[2017-12-01] MEDS: HYDROcodone/APAP 5/325MG 1 TAB TABLET PO (13:24)
== END 2017-12-01 13:00 | disposition hospice, home (50) | DRG 177 ==
LOC: ER 20:33 → 2 NORTH 21:17
PROC: 5A09357 Assistance with Respiratory Ventilation, Less than 24 Consecutive Hours, Continuous Positive Airway Pressure (ICD-10-PCS; 2017-11-20)
PROC: 30233N1 Transfusion of Nonautologous Red Blood Cells into Peripheral Vein, Percutaneous Approach (ICD-10-PCS; principal; 2017-11-21)
PROC: 5A09357 Assistance with Respiratory Ventilation, Less than 24 Consecutive Hours, Continuous Positive Airway Pressure (ICD-10-PCS; 2017-11-21)
PROC: 5A09357 Assistance with Respiratory Ventilation, Less than 24 Consecutive Hours, Continuous Positive Airway Pressure (ICD-10-PCS; 2017-11-25)
DX: J69.0 Pneumonitis due to inhalation of food and vomit (principal); N17.0 Acute kidney failure with tubular necrosis; J96.21 Acute and chronic respiratory failure with hypoxia; E43 Unspecified severe protein-calorie malnutrition; G93.41 Metabolic encephalopathy; E87.5 Hyperkalemia; I48.0 Paroxysmal atrial fibrillation; I13.0 Hypertensive heart and chronic kidney disease with heart failure and stage 1 through stage 4 chronic kidney disease, or unspecified chronic kidney disease; I50.30 Unspecified diastolic (congestive) heart failure; J44.0 Chronic obstructive pulmonary disease with (acute) lower respiratory infection; J44.1 Chronic obstructive pulmonary disease with (acute) exacerbation; D50.0 Iron deficiency anemia secondary to blood loss (chronic); D63.8 Anemia in other chronic diseases classified elsewhere; E03.9 Hypothyroidism, unspecified; E66.9 Obesity, unspecified; F03.90 Unspecified dementia, unspecified severity, without behavioral disturbance, psychotic disturbance, mood disturbance, and anxiety; I25.10 Atherosclerotic heart disease of native coronary artery without angina pectoris; I70.0 Atherosclerosis of aorta; I77.810 Thoracic aortic ectasia; I87.8 Other specified disorders of veins; K21.9 Gastro-esophageal reflux disease without esophagitis; N18.3 Chronic kidney disease, stage 3 (moderate); Z51.5 Encounter for palliative care; F32.9 Major depressive disorder, single episode, unspecified; F41.9 Anxiety disorder, unspecified; K59.00 Constipation, unspecified; L40.9 Psoriasis, unspecified; M19.90 Unspecified osteoarthritis, unspecified site; Z66 Do not resuscitate; Z96.659 Presence of unspecified artificial knee joint; Z68.38 Body mass index [BMI] 38.0-38.9, adult; Z79.01 Long term (current) use of anticoagulants; Z82.3 Family history of stroke; Z83.3 Family history of diabetes mellitus; Z86.718 Personal history of other venous thrombosis and embolism; Z87.891 Personal history of nicotine dependence; Z88.0 Allergy status to penicillin; Z90.49 Acquired absence of other specified parts of digestive tract; Z90.710 Acquired absence of both cervix and uterus; Z87.440 Personal history of urinary (tract) infections; Z88.8 Allergy status to other drugs, medicaments and biological substances
CPT/HCPCS: 36415; 71045; 71250; 80048; 80053; 80061; 82553; 83880; 84484; 85007; 85025; 86850; 86900; 86901; 86920; 87070; 87186; 87205; 87804; 87804-59; 92610-GN; 93005; 93306; 94640; 94660; 94760; 96374; 96375; 97110-GO; 97161-GP; 97165-GO; 97530-GO; 97530-GP; 97535-GO; 99291; 99291-25; J1160; J1940; J2185; J2920; J2930; J3490; J7620; P9016; Q0144